=== PATIENT | male | born 1975 | race Caucasian/White ===

== ENCOUNTER 2020-11-06 12:09 | Emergency (ER) | payer BC ==
[~2020-11-06] VITALS: Ht 172.7 cm; Wt 75.0 kg
[2020-11-06 12:23] VITALS: BP 141/88
[2020-11-06] MEDS ORDERED: ALB0.5UD IH (14:28)
== END 2020-11-06 14:37 | disposition home or self-care (01) ==
LOC: ER 12:10
DX: Z20.822 Contact with and (suspected) exposure to COVID-19 (principal); R09.89 Other specified symptoms and signs involving the circulatory and respiratory systems; R06.2 Wheezing; R05 Cough
CPT/HCPCS: 36415; 71045; 99284; U0003; U0005

== ENCOUNTER 2021-10-23 00:29 | Inpatient (IN) | payer BC, OTHER ==
[~2021-10-23] VITALS: Ht 172.7 cm; Wt 77.3 kg
[2021-10-23] VITALS (11 sets, daily range): BP systolic 130–163; BP diastolic 69–109
[2021-10-23] MEDS ORDERED: heparin 10,000 units/1 ML INJ IV ONE ×2 (00:40→02:30)
[2021-10-23] MEDS ORDERED: aspirin 81mg tab.chew PO ONE (00:40)
[2021-10-23] MEDS ORDERED: HEPARIN SOD,PORK IN 0.45% NACL 250 ML IV SCH ×2 (00:40→02:30)
[2021-10-23] MEDS ORDERED: heparin 10,000 units/1 ML INJ IV PRN ×2 (00:40→02:30)
[2021-10-23 00:51] LABS: BASOPHILS # (AUTO) 0.2 X10'3 (0-0.2); BASOPHILS % (AUTO) 1.2 % (0-1); EOSINOPHILS # (AUTO) 0.2 X10'3 (0-0.9); EOSINOPHILS % (AUTO) 1.8 % (0-6); HEMATOCRIT 43.8 % (42.0-52.0); HEMOGLOBIN 15.4 g/dl (14.0-17.9); LYMPHOCYTES # (AUTO) 3.7 X10'3 (1.1-4.8); LYMPHOCYTES % (AUTO) 29.8 % (21-51); MEAN CORPUSCULAR HEMOGLOBIN 32.7 PG (27.0-31.0); MEAN CORPUSCULAR HGB CONC 35.1 g/dL (33.0-36.5); MEAN CORPUSCULAR VOLUME 93.1 FL (78-98); MEAN PLATELET VOLUME 8.8 FL (7.4-10.4); MONOCYTES # (AUTO) 1.2 X10'3 (0-0.9); MONOCYTES % (AUTO) 9.2 % (2-12); NEUTROPHILS # (AUTO) 7.3 X10'3 (1.8-7.7); PLATELET COUNT 278 X10'3 (140-440); RED CELL DISTRIBUTION WIDTH 12.5 % (11.5-14.5); WHITE BLOOD COUNT 12.5 X10'3 (4.5-11.0)
[2021-10-23 01:05] LABS: ALANINE AMINOTRANSFERASE 105 U/L (12-78); ALBUMIN 4.2 G/DL (3.4-5.0); ALBUMIN/GLOBULIN RATIO 1.1 (1.1-1.5); ALKALINE PHOSPHATASE 82 IU/L (46-116); ANION GAP 12 (8-16); ASPARTATE AMINO TRANSFERASE 54 U/L (10-37); BILIRUBIN,TOTAL 0.5 MG/DL (0.1-1.0); BLOOD UREA NITROGEN 15 MG/DL (7-18); BUN/CREATININE RATIO 16.3 (5.4-32.0); CALCIUM 9.6 MG/DL (8.5-10.1); CHLORIDE 95 MMOL/L (99-107); CREATININE 0.92 MG/DL (0.60-1.10); GLUCOSE 216 MG/DL (70-104); POTASSIUM 3.7 MMOL/L (3.5-5.1); SODIUM 135 MMOL/L (135-145); TOTAL CARBON DIOXIDE 27.9 MMOL/L (24-32); TOTAL PROTEIN 8.1 G/DL (6.4-8.2); eGFR 88 ML/MIN
[2021-10-23 01:10] LABS: APTT 29 SECONDS (22-32)
--- NOTE | 2021-10-23 01:10 | NUR ---
CONFIRMED WITH DR GUNTER THAT DR DEWITT WAS CONTACTED AND PRECISION LENS GENERATOR IS BEING HELD OFF FOR THE PRESENT. HEPARIN DRIP ORDER HAS BEEN INITIATED. PT IS DENYING ANY CHEST PAIN AT PRESENT.
[2021-10-23 01:11] LABS: MAGNESIUM 1.5 MG/DL (1.5-2.4)
[2021-10-23] MEDS ORDERED: famotidine/PF 10 mg/ml inj IV ONE (01:35)
[2021-10-23] MEDS ORDERED: POTASSIUM BICARB 20meq eff tab 20 MEQ TABLET.EFF PO PRN ×2 (02:25)
[2021-10-23] MEDS ORDERED: PERFLUTREN PROTEIN-A MICROSPHR (Optison) 0.22 MG/ML 3ML VIAL IV ONE (02:25)
[2021-10-23] MEDS ORDERED: magnesium 4gm in 100ml NS 100 ML IV PRN (02:25)
[2021-10-23] MEDS ORDERED: aminophylline 500mg/20ml vial IV PRN (02:25)
[2021-10-23] MEDS ORDERED: nitroGLYCERIN 0.4mg SUBLingual tab SL PRN (02:25)
[2021-10-23] MEDS ORDERED: mag hydrox/Alum hydrox/simeth 30ml oral suspension PO PRN (02:25)
[2021-10-23] MEDS ORDERED: ondansetron/PF 4mg/2ml inj IV PRN (02:25)
[2021-10-23] MEDS ORDERED: regadenoson 0.4mg/5ml syringe IV PRN (02:25)
[2021-10-23] MEDS ORDERED: acetaminophen 325mg tablet PO PRN (02:25)
[2021-10-23] MEDS ORDERED: metoprolol tartrate 1mg/ml inj IV PRN (02:25)
[2021-10-23] MEDS ORDERED: magnesium 2GM in 50ml NS 50 ML IV PRN (02:25)
[2021-10-23] MEDS ORDERED: potassium CL 10mEq/100ml bag 100 ML IV PRN (02:25)
[2021-10-23] MEDS ORDERED: atorvastatin 20mg tablet PO ONE (02:35)
[2021-10-23] MEDS ORDERED: metoprolol tartrate 12.5mg (1/2 tablet) PO ONE (02:40)
[2021-10-23] MEDS ORDERED: haloperidol lactate 5mg/ml inj IM PRN (02:50)
[2021-10-23] MEDS ORDERED: LORazepam 1 MG tablet PO PRN (02:50)
[2021-10-23] MEDS ORDERED: LORazepam 2 mg/ml vial IV PRN (02:50)
[2021-10-23] MEDS ORDERED: haloperidol 5mg tablet PO PRN (02:50)
[2021-10-23 02:53] LABS: CHOL/HDL RATIO 6.9 (0.00-4.99); CHOLESTEROL 250 MG/DL (0-200); HDL CHOLESTEROL 36 MG/DL (35-60); LDL CHOLESTEROL 168 MG/DL (50-100); TRIGLYCERIDES 211 MG/DL (20-135)
--- NOTE | 2021-10-23 03:11 | NUR ---
NO CALL BACK FROM PAGE SENT OUT TO [facility] WITH PT'S NEW TROPONIN RESULT. ON DR KATZ'S REQUEST, I PAGED OUT TO DR DEWITT AND REPORTED NEW TROPONIN RESULT.
--- NOTE | 2021-10-23 03:15 | NUR ---
PT DENIES ANY CHEST PAIN AT THIS TIME .
[2021-10-23] MEDS ORDERED: NO HOME MEDS (03:16)
--- NOTE | 2021-10-23 03:23 | NUR ---
DR DEWITT HAS CALLED AND IS CURRENTLY TALKING TO DR KATZ OVER THE PHONE.
--- NOTE | 2021-10-23 04:14 | NUR ---
PAGED DR DRAPER FOR HYPERGLYCEMIC ORDERS.
--- NOTE | 2021-10-23 04:27 | NUR ---
TOLD DR KATZ AND PAGED DR DRAPER FOR NEW TROPONIN RESULT.
[2021-10-23] MEDS ORDERED: insulin Lispro (HumaLOG) vial - multi-dose SQ SCH (04:35)
[2021-10-23] MEDS ORDERED: DEXTROSE 15 GM of carb/4 tabs (each vial/BOTTLE has 4 tablets) PO PRN ×4 (04:35→17:10)
[2021-10-23] MEDS ORDERED: MESSAGE TO PHARMACY PO ONE ×2 (04:35→17:10)
[2021-10-23] MEDS ORDERED: glucagon, human recombinant 1mg kit SUBCUT PRN ×2 (04:35→17:10)
[2021-10-23] MEDS ORDERED: dextrose 50%-water 50ml dispensing syringe IV PRN ×4 (04:35→17:10)
[2021-10-23] MEDS ORDERED: NICOTINE POLACRILEX 2 MG LOZENGE BC PRN (05:15)
[2021-10-23] MEDS: K and/or MAG REPLACEMENT MC SCH ×2 (08:00→20:00)
[2021-10-23] MEDS: docusate sod 100mg capsule PO SCH ×2 (10:53→20:18)
[2021-10-23] MEDS: multivitamins, therapeutics tablet PO SCH (10:53)
[2021-10-23] MEDS ORDERED: LIDOcaine 1%/PF 5ML 10 MG/ML VIAL ONE (11:29)
[2021-10-23] MEDS ORDERED: fentaNYL/PF 50MCG/1 ML 2ML syringe ONE (11:29)
[2021-10-23] MEDS ORDERED: verapamil 2.5 mg/ml inj IV ONE (11:29)
[2021-10-23] MEDS ORDERED: nitroGLYCERIN-Tridil 50MG/D5W 250 ML IV ONE (11:29)
[2021-10-23] MEDS ORDERED: heparin 1,000unit/ml 10ml vial 10 ML ONE ×2 (11:30→13:02)
[2021-10-23] MEDS ORDERED: midazolam 1 mg/ML 2ml injection ONE (11:30)
[2021-10-23] MEDS ORDERED: iohexol 350MG/ML 100ml bottle IV ONE ×2 (11:30→12:26)
[2021-10-23] MEDS ORDERED: clopidogrel 300mg tablet ONE (13:00)
[2021-10-23] MEDS ORDERED: normal saline 1000ml 1,000 ML IV ONE (15:00)
--- NOTE | 2021-10-23 18:30 | NUR ---
Patient in room U 3014. I have received report from selina and had the opportunity to ask questions and assume patient care. Addendum: 10/24/21 at 0313 by Kimani Song LVN not selina resendiz
--- NOTE | 2021-10-23 18:30 | NUR ---
Problems reprioritized. Patient report given, questions answered & plan of care reviewed with Simon DE LEON.
[2021-10-23] MEDS: insulin Lispro (HumaLOG) vial - multi-dose SQ SCH (20:14)
[2021-10-23] MEDS: metoprolol tartrate 25mg tablet PO SCH (20:18)
[2021-10-23] MEDS ORDERED: insulin glargine (Lantus) pen - multi-dose SQ SCH ×2 (21:00)
[2021-10-23] MEDS ORDERED: temazepam 15mg capsule PO PRN (22:20)
[2021-10-24 00:36] VITALS: BP 151/90
[2021-10-24 02:00] VITALS: BP 145/83
[2021-10-24 06:00] VITALS: BP 179/109
--- NOTE | 2021-10-24 06:02 | NUR ---
Problems reprioritized. Patient report given, questions answered & plan of care reviewed with martín.
--- NOTE | 2021-10-24 06:30 | NUR ---
Patient in room PCU 3014. I have received report from Simon DE LEON and had the opportunity to ask questions and assume patient care.
[2021-10-24 07:06] LABS: BASOPHILS # (AUTO) 0.1 X10'3 (0-0.2); BASOPHILS % (AUTO) 0.6 % (0-1); EOSINOPHILS # (AUTO) 0.3 X10'3 (0-0.9); EOSINOPHILS % (AUTO) 2.1 % (0-6); HEMOGLOBIN 15.3 g/dl (14.0-17.9); LYMPHOCYTES # (AUTO) 2.4 X10'3 (1.1-4.8); LYMPHOCYTES % (AUTO) 18.9 % (21-51); MEAN CORPUSCULAR HEMOGLOBIN 32.1 PG (27.0-31.0); MEAN CORPUSCULAR VOLUME 94.3 FL (78-98); MEAN PLATELET VOLUME 9.1 FL (7.4-10.4); MONOCYTES # (AUTO) 1.3 X10'3 (0-0.9); NEUTROPHILS # (AUTO) 8.9 X10'3 (1.8-7.7); NEUTROPHILS % (AUTO) 68.4 % (42-75); PLATELET COUNT 264 X10'3 (140-440); RED BLOOD COUNT 4.77 X10'6 (4.70-6.10); RED CELL DISTRIBUTION WIDTH 12.7 % (11.5-14.5)
[2021-10-24 07:20] LABS: ALANINE AMINOTRANSFERASE 82 U/L (12-78); ALBUMIN/GLOBULIN RATIO 1.1 (1.1-1.5); ALKALINE PHOSPHATASE 76 IU/L (46-116); ANION GAP 14 (8-16); ASPARTATE AMINO TRANSFERASE 63 U/L (10-37); BILIRUBIN,TOTAL 0.6 MG/DL (0.1-1.0); BLOOD UREA NITROGEN 9 MG/DL (7-18); BUN/CREATININE RATIO 14.3 (5.4-32.0); CALCIUM 9.3 MG/DL (8.5-10.1); CHLORIDE 100 MMOL/L (99-107); CHOL/HDL RATIO 6.9 (0.00-4.99); CHOLESTEROL 248 MG/DL (0-200); CREATININE 0.63 MG/DL (0.60-1.10); GLUCOSE 166 MG/DL (70-104); HDL CHOLESTEROL 36 MG/DL (35-60); LDL CHOLESTEROL 156 MG/DL (50-100); LIPASE 104 U/L (73-393); PHOSPHORUS 3.6 MG/DL (2.3-4.5); POTASSIUM 4.3 MMOL/L (3.5-5.1); SODIUM 137 MMOL/L (135-145); TOTAL CARBON DIOXIDE 22.9 MMOL/L (24-32); TOTAL PROTEIN 7.8 G/DL (6.4-8.2); TRIGLYCERIDES 323 MG/DL (20-135); eGFR > 90 ML/MIN
[2021-10-24] MEDS ORDERED: atorvastatin 20mg tablet PO SCH (08:00)
[2021-10-24] MEDS ORDERED: aspirin 81mg, enteric-coated 1 TAB TABLET.DR PO SCH (08:00)
[2021-10-24] MEDS: K and/or MAG REPLACEMENT MC SCH (08:00)
[2021-10-24] MEDS ORDERED: clopidogrel 75mg tablet PO SCH (08:05)
[2021-10-24 08:27] VITALS: BP_SYST 179
[2021-10-24] MEDS: multivitamins, therapeutics tablet PO SCH (08:27)
[2021-10-24] MEDS: docusate sod 100mg capsule PO SCH (08:27)
[2021-10-24] MEDS: metoprolol tartrate 25mg tablet PO SCH (08:27)
[2021-10-24] MEDS ORDERED: CLOP75TA34 PO ×3 (09:55→12:24)
[2021-10-24] MEDS ORDERED: ATOR20TA66 PO (09:55)
[2021-10-24] MEDS ORDERED: LOP25T PO (09:55)
[2021-10-24] MEDS ORDERED: LISI5TAB22 PO (09:55)
[2021-10-24] MEDS ORDERED: ASPI-1071 PO (09:55)
[2021-10-24] MEDS ORDERED: METF-1203 PO (10:21)
[2021-10-24] MEDS: insulin Lispro (HumaLOG) vial - multi-dose SQ SCH (10:40)
[2021-10-24] MEDS ORDERED: lisinopril 5mg tablet PO SCH (12:00)
--- NOTE | 2021-10-24 12:24 | NUR ---
Pt. discharged with mom and plavix in hand, discharge teaching completed, IVs out, and personal belongings secured. Left via private vehicle.
[2021-10-27] MEDS ORDERED: folic acid 1mg tablet PO SCH (08:00)
[2021-10-27] MEDS ORDERED: thiamine 100mg tablet PO SCH (08:00)
== END 2021-10-24 12:05 | disposition home or self-care (01) | DRG 247 ==
LOC: ER 00:29 → ED HOLD 02:30 → PCU 3S 10:20
PROVIDERS: ADMIT Family Medicine; ATTEND Family Medicine
PROC: 4A023N7 Measurement of Cardiac Sampling and Pressure, Left Heart, Percutaneous Approach (ICD-10-PCS; principal; 2021-10-23)
PROC: 027034Z Dilation of Coronary Artery, One Artery with Drug-eluting Intraluminal Device, Percutaneous Approach (ICD-10-PCS; 2021-10-23)
PROC: B2111ZZ Fluoroscopy of Multiple Coronary Arteries using Low Osmolar Contrast (ICD-10-PCS; 2021-10-23)
PROC: B2151ZZ Fluoroscopy of Left Heart using Low Osmolar Contrast (ICD-10-PCS; 2021-10-23)
DX: I21.4 Non-ST elevation (NSTEMI) myocardial infarction (principal); E78.5 Hyperlipidemia, unspecified; F10.10 Alcohol abuse, uncomplicated; M25.512 Pain in left shoulder; R74.01 Elevation of levels of liver transaminase levels; F17.210 Nicotine dependence, cigarettes, uncomplicated; Z79.02 Long term (current) use of antithrombotics/antiplatelets; Z80.0 Family history of malignant neoplasm of digestive organs; Z83.3 Family history of diabetes mellitus; Z79.84 Long term (current) use of oral hypoglycemic drugs; Z71.6 Tobacco abuse counseling; Z71.41 Alcohol abuse counseling and surveillance of alcoholic
CPT/HCPCS: 93306; 93458; 99285; C9600; 36415; 71045; 76937; 80053; 80061; 82948; 83036; 83690; 83735; 83880; 84100; 84484; 85025; 85347; 85610; 85730; 87081; 93005; 99152; 99153; A4620; A5120; A6258; A6402; C1725; C1751; C1769; C1874; C1894; G0378; J1644; J1815; J2250; J3010; J3490; J7030; Q9967

== ENCOUNTER 2022-04-27 07:59 | Emergency (ER) | payer BC, SELFPAY ==
[~2022-04-27] VITALS: Ht 172.7 cm; Wt 61.4 kg
[~2022-04-27 07:59] MED LIST: ASPI-1071 PO; ATOR20TA66 PO; CLOP75TA34 PO; LISI5TAB22 PO; LOP25T PO; METF-1203 PO
[2022-04-27 08:53] LABS: BASOPHILS # (AUTO) 0.1 X10'3 (0-0.2); BASOPHILS % (AUTO) 0.6 % (0-1); EOSINOPHILS # (AUTO) 0.1 X10'3 (0-0.9); EOSINOPHILS % (AUTO) 0.7 % (0-6); HEMATOCRIT 32.1 % (42.0-52.0); HEMOGLOBIN 10.2 g/dl (14.0-17.9); LYMPHOCYTES # (AUTO) 1.2 X10'3 (1.1-4.8); LYMPHOCYTES % (AUTO) 9.8 % (21-51); MEAN CORPUSCULAR HEMOGLOBIN 26.3 PG (27.0-31.0); MEAN CORPUSCULAR HGB CONC 31.8 g/dL (33.0-36.5); MEAN CORPUSCULAR VOLUME 82.5 FL (78-98); MEAN PLATELET VOLUME 7.4 FL (7.4-10.4); MONOCYTES # (AUTO) 0.7 X10'3 (0-0.9); MONOCYTES % (AUTO) 5.6 % (2-12); NEUTROPHILS # (AUTO) 10.2 X10'3 (1.8-7.7); NEUTROPHILS % (AUTO) 83.3 % (42-75); PLATELET COUNT 512 X10'3 (140-440); RED CELL DISTRIBUTION WIDTH 16.3 % (11.5-14.5); WHITE BLOOD COUNT 12.3 X10'3 (4.5-11.0)
[2022-04-27 09:08] LABS: ALANINE AMINOTRANSFERASE 15 U/L (12-78); ALBUMIN 3.6 G/DL (3.4-5.0); ALBUMIN/GLOBULIN RATIO 0.9 (1.1-1.5); ALKALINE PHOSPHATASE 105 IU/L (46-116); ANION GAP 7 (8-16); ASPARTATE AMINO TRANSFERASE 9 U/L (10-37); BILIRUBIN,TOTAL 0.5 MG/DL (0.1-1.0); BLOOD UREA NITROGEN 7 MG/DL (7-18); BUN/CREATININE RATIO 10.9 (5.4-32.0); CALCIUM 9.6 MG/DL (8.5-10.1); CHLORIDE 102 MMOL/L (99-107); CREATININE 0.64 MG/DL (0.60-1.10); GLUCOSE 151 MG/DL (70-104); LIPASE 61 U/L (73-393); SODIUM 137 MMOL/L (135-145); TOTAL CARBON DIOXIDE 27.7 MMOL/L (24-32); TOTAL PROTEIN 7.6 G/DL (6.4-8.2); eGFR > 90 ML/MIN
[2022-04-27] MEDS ORDERED: normal saline 1000ML IV soln IVB ONE (10:05)
[2022-04-27] MEDS ORDERED: METR-159 PO (11:01)
[2022-04-27] MEDS ORDERED: HYDR-3965 PO (11:01)
[2022-04-27] MEDS ORDERED: CIPR-202 PO (11:01)
[2022-04-27] MEDS ORDERED: ONDA4TAB12 PO (11:01)
[2022-04-27 11:09] VITALS: BP 113/78
== END 2022-04-27 11:10 | disposition home or self-care (01) ==
LOC: ER 08:00
DX: K52.9 Noninfective gastroenteritis and colitis, unspecified (principal); Z79.84 Long term (current) use of oral hypoglycemic drugs; Z79.82 Long term (current) use of aspirin; Z79.899 Other long term (current) drug therapy
CPT/HCPCS: 36415; 74176; 80053; 83690; 85025; 99284

== ENCOUNTER 2022-05-05 08:00 | Inpatient (IN) | payer BC ==
[~2022-05-05] VITALS: Ht 172.7 cm; Wt 64.8 kg
[~2022-05-05 08:00] MED LIST changes: +CIPR-202 PO; +HYDR-3965 PO; +METR-159 PO; +ONDA4TAB12 PO
[2022-05-05 10:43] LABS: BASOPHILS # (AUTO) 0.1 X10'3 (0-0.2); BASOPHILS % (AUTO) 0.6 % (0-1); EOSINOPHILS # (AUTO) 0.1 X10'3 (0-0.9); EOSINOPHILS % (AUTO) 0.5 % (0-6); HEMATOCRIT 32.9 % (42.0-52.0); HEMOGLOBIN 10.6 g/dl (14.0-17.9); LYMPHOCYTES # (AUTO) 1.6 X10'3 (1.1-4.8); LYMPHOCYTES % (AUTO) 13.2 % (21-51); MEAN CORPUSCULAR HEMOGLOBIN 25.7 PG (27.0-31.0); MEAN CORPUSCULAR HGB CONC 32.3 g/dL (33.0-36.5); MEAN CORPUSCULAR VOLUME 79.7 FL (78-98); MEAN PLATELET VOLUME 7.2 FL (7.4-10.4); NEUTROPHILS # (AUTO) 9.3 X10'3 (1.8-7.7); NEUTROPHILS % (AUTO) 77.7 % (42-75); PLATELET COUNT 607 X10'3 (140-440); RED BLOOD COUNT 4.13 X10'6 (4.70-6.10); RED CELL DISTRIBUTION WIDTH 16.6 % (11.5-14.5); WHITE BLOOD COUNT 11.9 X10'3 (4.5-11.0)
[2022-05-05 11:00] LABS: ALANINE AMINOTRANSFERASE 18 U/L (12-78); ALBUMIN/GLOBULIN RATIO 1.1 (1.1-1.5); ALKALINE PHOSPHATASE 73 IU/L (46-116); ANION GAP 10 (8-16); ASPARTATE AMINO TRANSFERASE 14 U/L (10-37); BILIRUBIN,TOTAL 0.5 MG/DL (0.1-1.0); BLOOD UREA NITROGEN 12 MG/DL (7-18); CALCIUM 9.8 MG/DL (8.5-10.1); CHLORIDE 101 MMOL/L (99-107); CREATININE 0.63 MG/DL (0.60-1.10); GLUCOSE 128 MG/DL (70-104); LIPASE 70 U/L (73-393); POTASSIUM 3.7 MMOL/L (3.5-5.1); SODIUM 138 MMOL/L (135-145); TOTAL CARBON DIOXIDE 27.5 MMOL/L (24-32); TOTAL PROTEIN 7.6 G/DL (6.4-8.2); eGFR > 90 ML/MIN
[2022-05-05 11:08] LABS: PLATELET ESTIMATE INCREASED
[2022-05-05 11:09] LABS: ANISOCYTOSIS 1+; MICROCYTOSIS 1+
[2022-05-05 12:01] LABS: APTT 26 SECONDS (22-32)
[2022-05-05] MEDS ORDERED: iohexol 300mg/ml 100ml inj. ONE (12:12)
[2022-05-05] MEDS ORDERED: pantoprazole 40mg IV 80 MG in normal saline 100ml IV soln 100 ML IV ONE (16:15)
[2022-05-05] MEDS ORDERED: METF-436 PO (17:25)
[2022-05-05] MEDS ORDERED: CLOP75TA33 PO (17:25)
[2022-05-05] MEDS ORDERED: ATOR20TA66 PO (17:25)
[2022-05-05] MEDS ORDERED: LISI5TAB22 PO (17:25)
[2022-05-05] MEDS ORDERED: METO25TA6 PO (17:25)
[2022-05-05] MEDS ORDERED: CIPR500T5 PO (17:25)
[2022-05-05] MEDS ORDERED: acetaminophen 325mg tablet PO PRN (17:30)
[2022-05-05] MEDS ORDERED: magnesium 4gm in 100ml NS 100 ML IV PRN (17:30)
[2022-05-05] MEDS ORDERED: PEG 3350/Na sulf,bicarb,Cl/KCl oral sol 4 liter bottle PO ONE (17:30)
[2022-05-05] MEDS ORDERED: magnesium Cl slow-release 64mg tablet PO PRN (17:30)
[2022-05-05] MEDS ORDERED: potassium Cl 40MEQ/1/2NS 520ml 520 ML IV PRN (17:30)
[2022-05-05] MEDS ORDERED: mag hydrox/Alum hydrox/simeth 30ml oral suspension PO PRN (17:30)
[2022-05-05] MEDS ORDERED: potassium Cl 20 mEq SR tablet PO PRN ×2 (17:30)
[2022-05-05] MEDS ORDERED: magnesium hydroxide 30ml (MOM) UD suspension PO PRN (17:30)
[2022-05-05] MEDS ORDERED: ondansetron/PF 4mg/2ml inj IV PRN (17:30)
[2022-05-05] MEDS: normal saline 1000ml 1,000 ML IV SCH (18:41)
[2022-05-05] MEDS: K and/or MAG REPLACEMENT MC SCH (19:01)
[2022-05-05] MEDS: docusate sod 100mg capsule PO SCH (19:02)
[2022-05-05] MEDS: pantoprazole 40MG/NS 100ML BAG 100 ML IV SCH (19:36)
[2022-05-05] MEDS: ciprofloxacin 250mg tablet PO SCH (19:36)
[2022-05-05] MEDS: metoprolol tartrate 25mg tablet PO SCH (19:39)
[2022-05-05 19:43] LABS: COLOR,URINE YELLOW (Yellow); GLUCOSE, URINE NEGATIVE (Neg); KETONES,URINE 15 mg/dl (Neg); LEUKOCYTE ESTERASE ,URINE NEGATIVE (Neg); NITRITES, URINE NEGATIVE (Neg); OCCULT BLOOD,URINE SMALL (Neg); PH,URINE 6.5 (4.8-8.0); PROTEIN,URINE NEGATIVE (Neg); UROBILINOGEN,URINE 0.2 E.U/dL (0.2-1.0)
[2022-05-05 19:50] LABS: CLARITY,URINE SLIGHTLY CLOUDY (Clear); UA COLLECTION TYPE URINAL
[2022-05-05 19:57] LABS: MUCUS STRANDS FEW /LPF (Neg); SQUAMOUS EPITHELIAL CELL,UR FEW /LPF (FEW)
[2022-05-05 19:58] LABS: BACTERIA,URINE NONE SEEN /HPF (Neg)
[2022-05-05 19:59] LABS: CAL OXALATE CRYSTALS 1+ /HPF (NEGATIVE); WBC,URINE 0-4 /HPF (0-4)
[2022-05-05 20:00] LABS: TRANSITIONAL EPI CELLS,URINE FEW /HPF
[2022-05-05 21:04] VITALS: BP 130/79
[2022-05-05 23:14] VITALS: BP 147/78
[2022-05-06] VITALS (10 sets, daily range): BP systolic 99–141; BP diastolic 58–95
[2022-05-06] MEDS: normal saline 1000ml 1,000 ML IV SCH ×3 (03:30→13:30)
[2022-05-06 05:46] LABS: BASOPHILS # (AUTO) 0.1 X10'3 (0-0.2); BASOPHILS % (AUTO) 0.8 % (0-1); EOSINOPHILS # (AUTO) 0.1 X10'3 (0-0.9)
[2022-05-06 05:48] LABS: EOSINOPHILS % (AUTO) 0.5 % (0-6); HEMOGLOBIN 10.7 g/dl (14.0-17.9); LYMPHOCYTES # (AUTO) 1.7 X10'3 (1.1-4.8); LYMPHOCYTES % (AUTO) 12.1 % (21-51); MEAN CORPUSCULAR HEMOGLOBIN 25.1 PG (27.0-31.0); MEAN CORPUSCULAR HGB CONC 31.6 g/dL (33.0-36.5); MEAN CORPUSCULAR VOLUME 79.5 FL (78-98); MEAN PLATELET VOLUME 7.3 FL (7.4-10.4); MONOCYTES # (AUTO) 1.1 X10'3 (0-0.9); MONOCYTES % (AUTO) 7.7 % (2-12); NEUTROPHILS # (AUTO) 11.3 X10'3 (1.8-7.7); NEUTROPHILS % (AUTO) 78.9 % (42-75); PLATELET COUNT 607 X10'3 (140-440); RED BLOOD COUNT 4.27 X10'6 (4.70-6.10); RED CELL DISTRIBUTION WIDTH 17.1 % (11.5-14.5); WHITE BLOOD COUNT 14.3 X10'3 (4.5-11.0)
[2022-05-06 05:51] LABS: ALBUMIN 4.1 G/DL (3.4-5.0); ANION GAP 12 (8-16); BLOOD UREA NITROGEN 13 MG/DL (7-18); BUN/CREATININE RATIO 17.3 (10.0-20.0); CALCIUM 9.9 MG/DL (8.5-10.1); CHLORIDE 97 MMOL/L (99-107); CREATININE 0.75 MG/DL (0.60-1.10); GLUCOSE 119 MG/DL (70-104); MAGNESIUM 1.7 MG/DL (1.5-2.4); POTASSIUM 4.4 MMOL/L (3.5-5.1); SODIUM 135 MMOL/L (135-145); TOTAL CARBON DIOXIDE 26.2 MMOL/L (24-32); eGFR > 90 ML/MIN
--- NOTE | 2022-05-06 06:20 | NUR ---
Patient in room PCU 3023. I have received report from Walter FONTAINE and had the opportunity to ask questions and assume patient care.
--- NOTE | 2022-05-06 06:22 | NUR ---
Problems reprioritized. Patient report given, questions answered & plan of care reviewed with Gwen DE LEON.
[2022-05-06 06:36] LABS: PLATELET ESTIMATE INCREASED
[2022-05-06 06:37] LABS: ANISOCYTOSIS 1+; MICROCYTOSIS 1+
[2022-05-06 06:38] LABS: BURR CELLS FEW; LARGE PLATELETS FEW
[2022-05-06] MEDS: docusate sod 100mg capsule PO SCH ×2 (08:00→23:00)
[2022-05-06] MEDS: K and/or MAG REPLACEMENT MC SCH ×2 (08:00→20:00)
[2022-05-06] MEDS: pantoprazole 40MG/NS 100ML BAG 100 ML IV SCH ×2 (08:27→22:52)
[2022-05-06] MEDS: metoprolol tartrate 25mg tablet PO SCH ×2 (08:42→23:20)
[2022-05-06] MEDS: lisinopril 5mg tablet PO SCH (08:44)
[2022-05-06] MEDS: atorvastatin 20mg tablet PO SCH (08:44)
[2022-05-06] MEDS: ciprofloxacin 250mg tablet PO SCH ×2 (08:44→23:01)
--- NOTE | 2022-05-06 09:00 | NUR ---
Attempted to call GI lab no answer at this time.
--- NOTE | 2022-05-06 12:00 | NUR ---
Attempted to call GI lab. No answer
--- NOTE | 2022-05-06 13:57 | NUR ---
Malnutrition consult: Pt reports wt loss with decreased appetite per malnutrition risk screen with RN. Most recent scaled wt hx in EMR is 61.36 kg taken 04/27 with a chair scale. Current bed scaled wt is 64.8 kg, no apparent wt loss. Pt with an active clear liquid diet however appears to actually be NPO and drinking GoLytely pending colonoscopy and endoscopy per EMR. Pt with no documented decrease in muscle strength or edema. Pt currently lacks a minimum of two criteria for malnutrition. Will continue to follow and further monitor qualifying criteria for malnutrition. Addendum: 05/06/22 at [address] Amended: Links added.
--- NOTE | 2022-05-06 14:03 | NUR ---
Attempted to call GI lab. No answer at this time.
--- NOTE | 2022-05-06 14:48 | NUR ---
Spoke with Nayeli from GI Lab. She is going to find out when the patient will be going to the procedure and let me know.
[2022-05-06] MEDS ORDERED: LIDOcaine Viscous 15ml cup ONE (16:47)
[2022-05-06] MEDS ORDERED: MIDAZolam 1 MG/ML 5ML VIAL ONE (16:47)
[2022-05-06] MEDS ORDERED: fentaNYL/PF 50MCG/1 ML 2ML syringe ONE (16:47)
--- NOTE | 2022-05-06 17:02 | NUR ---
Patient going to GI Lab for EGD and Colonoscopy.
--- NOTE | 2022-05-06 18:17 | NUR ---
Problems reprioritized. Patient report given, questions answered & plan of care reviewed with Bobby FONTAINE.
[2022-05-06] MEDS ORDERED: morphine 2 MG/ML inj. syringe IV PRN (22:15)
[2022-05-06] MEDS ORDERED: morphine 4 MG/ML inj SYRINge IV PRN (22:15)
[2022-05-06] MEDS: temazepam 15mg capsule PO PRN ×2 (22:52→23:49)
[2022-05-06] MEDS: HYDROmorphone inj. 0.5 MG/0.5 ML DISP.SYRIN IV PRN (22:53)
[2022-05-07] MEDS: normal saline 1000ml 1,000 ML IV SCH (01:30)
[2022-05-07 06:06] LABS: BASOPHILS # (AUTO) 0.1 X10'3 (0-0.2); BASOPHILS % (AUTO) 0.8 % (0-1); EOSINOPHILS # (AUTO) 0.3 X10'3 (0-0.9); EOSINOPHILS % (AUTO) 2.9 % (0-6); HEMATOCRIT 32.7 % (42.0-52.0); HEMOGLOBIN 10.3 g/dl (14.0-17.9); LYMPHOCYTES # (AUTO) 2.5 X10'3 (1.1-4.8); LYMPHOCYTES % (AUTO) 23.5 % (21-51); MEAN CORPUSCULAR HEMOGLOBIN 25.7 PG (27.0-31.0); MEAN CORPUSCULAR HGB CONC 31.5 g/dL (33.0-36.5); MEAN CORPUSCULAR VOLUME 81.6 FL (78-98); MEAN PLATELET VOLUME 7.5 FL (7.4-10.4); MONOCYTES # (AUTO) 1.1 X10'3 (0-0.9); NEUTROPHILS # (AUTO) 6.7 X10'3 (1.8-7.7); NEUTROPHILS % (AUTO) 62.8 % (42-75); PLATELET COUNT 481 X10'3 (140-440); RED CELL DISTRIBUTION WIDTH 16.9 % (11.5-14.5); WHITE BLOOD COUNT 10.6 X10'3 (4.5-11.0)
[2022-05-07 06:21] LABS: ALBUMIN 3.5 G/DL (3.4-5.0); ANION GAP 13 (8-16); BLOOD UREA NITROGEN 17 MG/DL (7-18); BUN/CREATININE RATIO 25.8 (10.0-20.0); CALCIUM 9.2 MG/DL (8.5-10.1); CHLORIDE 103 MMOL/L (99-107); CREATININE 0.66 MG/DL (0.60-1.10); GLUCOSE 66 MG/DL (70-104); MAGNESIUM 1.8 MG/DL (1.5-2.4); POTASSIUM 3.8 MMOL/L (3.5-5.1); SODIUM 137 MMOL/L (135-145); TOTAL CARBON DIOXIDE 21.5 MMOL/L (24-32); eGFR > 90 ML/MIN
[2022-05-07 07:00] VITALS: BP 102/63
[2022-05-07] MEDS: ciprofloxacin 250mg tablet PO SCH ×2 (08:00→20:40)
[2022-05-07] MEDS: K and/or MAG REPLACEMENT MC SCH ×2 (08:00→20:28)
[2022-05-07] MEDS: docusate sod 100mg capsule PO SCH ×2 (08:00→20:00)
[2022-05-07] MEDS: lisinopril 5mg tablet PO SCH (08:01)
[2022-05-07] MEDS: atorvastatin 20mg tablet PO SCH (08:02)
[2022-05-07] MEDS: metoprolol tartrate 25mg tablet PO SCH ×2 (08:02→20:49)
[2022-05-07] MEDS: dextrose 5%-normal saline 1,000 ML IV SCH ×2 (08:45→23:03)
[2022-05-07] MEDS: pantoprazole 40MG/NS 100ML BAG 100 ML IV SCH ×2 (09:09→19:49)
[2022-05-07 11:00] VITALS: BP 100/64
--- NOTE | 2022-05-07 14:56 | NUR ---
[id number] Kellie. Pt feeling anxious about surgery. Can I have an order for an anxiety med? Thank you. Lorena FONTAINE @[phone]
[2022-05-07 15:00] VITALS: BP 117/70
--- NOTE | 2022-05-07 16:10 | NUR ---
sent to jillian [id number] Hopkins: pt very nervous about cancer bowel resection surgery tomorrow. Can I please have an order for ativan or xanax to help calm his anxiety down? Thank you. Cele FONTAINE [phone]
--- NOTE | 2022-05-07 16:51 | NUR ---
sent to jillian [id number] Hopkins: I need an order for ativan or xanax to help this pt with anxiety please. thank you.
[2022-05-07] MEDS ORDERED: LORazepam 0.5 MG tablet PO PRN (16:55)
[2022-05-07 18:00] VITALS: BP 113/66
--- NOTE | 2022-05-07 18:30 | NUR ---
Patient in room PCU 3023. I have received report from Cele FONTAINE and had the opportunity to ask questions and assume patient care.
[2022-05-07 22:00] VITALS: BP 130/80
[2022-05-07] MEDS: temazepam 15mg capsule PO PRN (22:11)
--- NOTE | 2022-05-07 23:26 | NUR ---
Problems reprioritized. Patient report given, questions answered & plan of care reviewed with Jailyn FONTAINE.
[2022-05-08] VITALS (19 sets, daily range): BP systolic 105–167; BP diastolic 67–104
[2022-05-08] MEDS: temazepam 15mg capsule PO PRN (00:23)
--- NOTE | 2022-05-08 06:14 | NUR ---
Patient reviewed and reported. Report given to Alyssa FONTAINE
--- NOTE | 2022-05-08 06:44 | NUR ---
Patient in room ORTHO 4015. I have received report from ANDREINA FONTAINE and had the opportunity to ask questions and assume patient care.
--- NOTE | 2022-05-08 07:15 | NUR ---
called OR charge to discuss pts meds before surgery, stated all heart meds are fine if vitals are good due to the pt not going till later today. told i would hold cipro due to pt not eating and pt is already nauseas at times.
[2022-05-08 07:38] LABS: BASOPHILS # (AUTO) 0.1 X10'3 (0-0.2); BASOPHILS % (AUTO) 1.1 % (0-1); EOSINOPHILS # (AUTO) 0.2 X10'3 (0-0.9); EOSINOPHILS % (AUTO) 2.4 % (0-6); HEMOGLOBIN 9.3 g/dl (14.0-17.9); LYMPHOCYTES # (AUTO) 1.4 X10'3 (1.1-4.8); LYMPHOCYTES % (AUTO) 17.2 % (21-51); MEAN CORPUSCULAR HEMOGLOBIN 25.6 PG (27.0-31.0); MEAN CORPUSCULAR HGB CONC 32.2 g/dL (33.0-36.5); MEAN CORPUSCULAR VOLUME 79.5 FL (78-98); MEAN PLATELET VOLUME 7.3 FL (7.4-10.4); MONOCYTES # (AUTO) 0.8 X10'3 (0-0.9); MONOCYTES % (AUTO) 9.5 % (2-12); NEUTROPHILS # (AUTO) 5.7 X10'3 (1.8-7.7); NEUTROPHILS % (AUTO) 69.8 % (42-75); PLATELET COUNT 441 X10'3 (140-440); RED BLOOD COUNT 3.65 X10'6 (4.70-6.10); RED CELL DISTRIBUTION WIDTH 16.3 % (11.5-14.5); WHITE BLOOD COUNT 8.2 X10'3 (4.5-11.0)
[2022-05-08 07:49] LABS: PRE OP INR 1.1 INR; PRE OP PROTIME 11.4 SECONDS (9.0-12.0)
[2022-05-08 07:52] LABS: ALBUMIN 3.1 G/DL (3.4-5.0); ANION GAP 7 (8-16); BLOOD UREA NITROGEN 8 MG/DL (7-18); BUN/CREATININE RATIO 13.1 (10.0-20.0); CALCIUM 8.5 MG/DL (8.5-10.1); CHLORIDE 103 MMOL/L (99-107); CREATININE 0.61 MG/DL (0.60-1.10); GLUCOSE 106 MG/DL (70-104); MAGNESIUM 1.5 MG/DL (1.5-2.4); POTASSIUM 3.8 MMOL/L (3.5-5.1); SODIUM 137 MMOL/L (135-145); TOTAL CARBON DIOXIDE 26.6 MMOL/L (24-32); eGFR > 90 ML/MIN
[2022-05-08] MEDS: K and/or MAG REPLACEMENT MC SCH ×2 (08:00→20:00)
[2022-05-08] MEDS: ciprofloxacin 250mg tablet PO SCH ×2 (08:00→21:16)
[2022-05-08] MEDS: atorvastatin 20mg tablet PO SCH (08:26)
[2022-05-08] MEDS: metoprolol tartrate 25mg tablet PO SCH ×2 (08:26→21:17)
[2022-05-08] MEDS: lisinopril 5mg tablet PO SCH (08:27)
[2022-05-08] MEDS: docusate sod 100mg capsule PO SCH ×2 (08:36→21:16)
[2022-05-08] MEDS: pantoprazole 40MG/NS 100ML BAG 100 ML IV SCH ×2 (09:40→21:15)
[2022-05-08] MEDS: dextrose 5%-normal saline 1,000 ML IV SCH (13:21)
--- NOTE | 2022-05-08 13:37 | NUR ---
this was done at 10 am Addendum: 05/08/22 at 1337 by Alyssa Ibarra RN Amended: Links added.
--- NOTE | 2022-05-08 16:03 | NUR ---
Problems reprioritized. Patient report given, questions answered & plan of care reviewed with darcie fountain in recovery .
[2022-05-08] MEDS ORDERED: BUPIVAcaine/PF 2.5 mg/ml (0.25%) 30ml vial ONE (17:33)
[2022-05-08] MEDS ORDERED: BUPIVACAINE liposomal/PF 13.3 MG/ML vial IM ONE (17:33)
[2022-05-08] MEDS ORDERED: ondansetron/PF 4mg/2ml inj IV PRN (17:35)
[2022-05-08] MEDS ORDERED: proCHLORperazine 10 MG/2 ml inj IV PRN (17:35)
[2022-05-08] MEDS ORDERED: sevoflurane 250ml liquid IH ONE (17:35)
[2022-05-08] MEDS ORDERED: morphine 4 MG/ML inj SYRINge IV PRN (17:35)
[2022-05-08] MEDS ORDERED: morphine 2 MG/ML inj. syringe IV PRN (17:35)
[2022-05-08] MEDS ORDERED: ringers solution, lacted 1,000 ML IV SCH (17:35)
[2022-05-08] MEDS ORDERED: meperidine/PF 25mg/ml syringe IV PRN ×2 (17:35)
[2022-05-08] MEDS ORDERED: midazolam 1 mg/ML 2ml injection ONE (17:35)
[2022-05-08] MEDS ORDERED: fentaNYL /PF 50mcg/ml 5ml ampule ONE (17:36)
--- NOTE | 2022-05-08 18:32 | NUR ---
Problems reprioritized. Patient report given, questions answered & plan of care reviewed with catalina fountain.
[2022-05-08] MEDS ORDERED: ondansetron/PF 4mg/2ml inj ONE (19:07)
[2022-05-08] MEDS ORDERED: LIDOcaine 1%/PF 5ML 10 MG/ML VIAL ONE (19:07)
[2022-05-08] MEDS ORDERED: propofol inj 20 ML IV ONE (19:07)
[2022-05-08] MEDS ORDERED: acetaminophen 1,000mg/100ml IV 100 ML IV ONE (19:07)
[2022-05-08] MEDS ORDERED: dexamethasone sod phosphate 4mg/ml inj. ONE (19:07)
[2022-05-08] MEDS ORDERED: rocuronium 10mg/ml inj IV ONE (19:07)
[2022-05-08] MEDS ORDERED: sugammadex 200mg/2ml injection IV ONE (19:08)
[2022-05-08] MEDS ORDERED: esmolol inj. 10 ML IV ONE (19:08)
[2022-05-08] MEDS ORDERED: glycopyrrolate 0.2mg/ml inj ONE (19:08)
[2022-05-08] MEDS ORDERED: labetalol 20mg/4ml (5mg/ml) syringe IV ONE (19:08)
--- NOTE | 2022-05-08 19:08 | NUR ---
Patient in room ORTHO 4015. I have received report from ZHEN Shah and had the opportunity to ask questions and assume patient care.
--- NOTE | 2022-05-08 19:30 | NUR ---
Received from OR via , accompanied by Anesthesiologist MARTIN AND OR NURSE and report given by Anesthesiolgist. PT IS DROWSY YET FOLLOWS VERBAL COMMANDS. ORAL AIRWAY IN PLACE UNTIL PT IS MORE AWAKE. NG TUBE IN PLACE; LEFT NARE. SHON MUKHERJEE; PATENT. VSS Addendum: 05/08/22 at 2012 by Valarie Mai RN Amended: Links added.
[2022-05-08] MEDS: meperidine/PF 25mg/ml syringe IV PRN ×2 (19:50→20:23)
--- NOTE | 2022-05-08 20:50 | NUR ---
PATIENT HAS MET ALL CRITERIA FOR TRANSFER TO THE ORTHO FLOOR. VSS. DRESSINGS INTACT. BED LOW, CALL LIGHT PRESENT AND 2 RAILS UP. RN PRESENT TO ACCEPT CARE OF PATIENT AND REPORT HAS BEEN CALLED. ALL QUESTIONS ANSWERED TO ACCEPTING RN. Addendum: 05/08/22 at 2120 by Valarie Mai RN Amended: Links added.
[2022-05-08] MEDS: HYDROmorphone inj. 0.5 MG/0.5 ML DISP.SYRIN IV PRN (22:17)
[2022-05-08] MEDS: HYDROmorphone 1 mg/ml syringe IV PRN (23:05)
[2022-05-09] VITALS (8 sets, daily range): BP systolic 93–153; BP diastolic 59–95
--- NOTE | 2022-05-09 00:02 | NUR ---
Patient in room ORTHO 4015. I have received report from ZHEN Orrdisaster recovery consultant and had the opportunity to ask questions and assume patient care.
[2022-05-09] MEDS: HYDROmorphone 1 mg/ml syringe IV PRN ×9 (01:01→20:59)
[2022-05-09] MEDS: dextrose 5%-normal saline 1,000 ML IV SCH ×2 (03:07→17:57)
[2022-05-09 06:26] LABS: BASOPHILS % (AUTO) 0.1 % (0-1); EOSINOPHILS % (AUTO) 0 % (0-6); HEMATOCRIT 30.9 % (42.0-52.0); HEMOGLOBIN 9.9 g/dl (14.0-17.9); LYMPHOCYTES # (AUTO) 0.6 X10'3 (1.1-4.8); MEAN CORPUSCULAR HEMOGLOBIN 25.1 PG (27.0-31.0); MEAN CORPUSCULAR HGB CONC 31.9 g/dL (33.0-36.5); MEAN CORPUSCULAR VOLUME 78.5 FL (78-98); MEAN PLATELET VOLUME 7.8 FL (7.4-10.4); MONOCYTES % (AUTO) 6.3 % (2-12); NEUTROPHILS # (AUTO) 14.3 X10'3 (1.8-7.7); NEUTROPHILS % (AUTO) 89.6 % (42-75); PLATELET COUNT 486 X10'3 (140-440); RED BLOOD COUNT 3.93 X10'6 (4.70-6.10); RED CELL DISTRIBUTION WIDTH 16.6 % (11.5-14.5); WHITE BLOOD COUNT 15.9 X10'3 (4.5-11.0)
[2022-05-09 06:29] LABS: ALBUMIN 3.2 G/DL (3.4-5.0); ANION GAP 8 (8-16); BLOOD UREA NITROGEN 4 MG/DL (7-18); CALCIUM 8.4 MG/DL (8.5-10.1); CHLORIDE 99 MMOL/L (99-107); CREATININE 0.57 MG/DL (0.60-1.10); GLUCOSE 181 MG/DL (70-104); MAGNESIUM 1.3 MG/DL (1.5-2.4); POTASSIUM 4.3 MMOL/L (3.5-5.1); SODIUM 134 MMOL/L (135-145); TOTAL CARBON DIOXIDE 26.9 MMOL/L (24-32); eGFR > 90 ML/MIN
--- NOTE | 2022-05-09 06:50 | NUR ---
Problems reprioritized. Patient report given, questions answered & plan of care reviewed with ZHEN Alvarado.
[2022-05-09] MEDS: K and/or MAG REPLACEMENT MC SCH ×3 (08:00→19:00)
[2022-05-09] MEDS: pantoprazole 40MG/NS 100ML BAG 100 ML IV SCH ×2 (10:00→19:11)
[2022-05-09] MEDS: ciprofloxacin 250mg tablet PO SCH ×2 (10:01→19:10)
[2022-05-09] MEDS: docusate sod 100mg capsule PO SCH ×2 (10:02→19:10)
[2022-05-09] MEDS: metoprolol tartrate 25mg tablet PO SCH ×2 (10:02→19:12)
[2022-05-09] MEDS: lisinopril 5mg tablet PO SCH (10:02)
[2022-05-09] MEDS: atorvastatin 20mg tablet PO SCH (10:03)
[2022-05-09] MEDS ORDERED: potassium Cl 40MEQ/1/2NS 520ml 520 ML IV PRN (10:20)
[2022-05-09] MEDS ORDERED: magnesium 4gm in 100ml NS 100 ML IV PRN (10:20)
[2022-05-09] MEDS ORDERED: potassium Cl 20 mEq SR tablet PO PRN ×2 (10:20)
--- NOTE | 2022-05-09 11:00 | NUR ---
Dc'd NGT. Pt tolerated procedure well.
--- NOTE | 2022-05-09 15:50 | NUR ---
Report given to Flori Savage STOVE INSTALLER and pt transferred to Surgical 356A with all belongings.
--- NOTE | 2022-05-09 16:00 | NUR ---
Received report from ZHEN Alvarado and received patient to the floor. Patient stable. All belongings brought to the floor with patient.
[2022-05-10] MEDS: HYDROmorphone 1 mg/ml syringe IV PRN ×6 (00:18→20:56)
[2022-05-10 06:00] VITALS: BP 90/46
[2022-05-10 06:27] LABS: ANION GAP 9 (8-16); BLOOD UREA NITROGEN 3 MG/DL (7-18); BUN/CREATININE RATIO 4.8 (10.0-20.0); CALCIUM 8.7 MG/DL (8.5-10.1); CHLORIDE 99 MMOL/L (99-107); CREATININE 0.63 MG/DL (0.60-1.10); GLUCOSE 131 MG/DL (70-104); POTASSIUM 3.5 MMOL/L (3.5-5.1); SODIUM 136 MMOL/L (135-145); TOTAL CARBON DIOXIDE 27.7 MMOL/L (24-32); eGFR > 90 ML/MIN
[2022-05-10 06:33] LABS: BASOPHILS # (AUTO) 0.1 X10'3 (0-0.2); BASOPHILS % (AUTO) 0.5 % (0-1); EOSINOPHILS # (AUTO) 0.1 X10'3 (0-0.9); EOSINOPHILS % (AUTO) 0.5 % (0-6); HEMATOCRIT 28.1 % (42.0-52.0); HEMOGLOBIN 9.1 g/dl (14.0-17.9); LYMPHOCYTES # (AUTO) 1.7 X10'3 (1.1-4.8); LYMPHOCYTES % (AUTO) 15.9 % (21-51); MEAN CORPUSCULAR HEMOGLOBIN 25.5 PG (27.0-31.0); MEAN CORPUSCULAR HGB CONC 32.5 g/dL (33.0-36.5); MEAN CORPUSCULAR VOLUME 78.3 FL (78-98); MEAN PLATELET VOLUME 8.4 FL (7.4-10.4); MONOCYTES # (AUTO) 1.3 X10'3 (0-0.9); MONOCYTES % (AUTO) 12.1 % (2-12); NEUTROPHILS # (AUTO) 7.6 X10'3 (1.8-7.7); PLATELET COUNT 423 X10'3 (140-440); RED BLOOD COUNT 3.58 X10'6 (4.70-6.10); RED CELL DISTRIBUTION WIDTH 16.7 % (11.5-14.5); WHITE BLOOD COUNT 10.7 X10'3 (4.5-11.0)
[2022-05-10] MEDS: lisinopril 5mg tablet PO SCH (08:00)
[2022-05-10] MEDS: metoprolol tartrate 25mg tablet PO SCH ×2 (08:00→19:51)
[2022-05-10] MEDS: K and/or MAG REPLACEMENT MC SCH ×4 (08:00→19:53)
[2022-05-10] MEDS: ciprofloxacin 250mg tablet PO SCH ×2 (08:07→19:52)
[2022-05-10] MEDS: docusate sod 100mg capsule PO SCH ×2 (08:07→19:51)
[2022-05-10] MEDS: pantoprazole 40MG/NS 100ML BAG 100 ML IV SCH ×2 (08:08→19:51)
[2022-05-10] MEDS: atorvastatin 20mg tablet PO SCH (08:08)
[2022-05-10] MEDS: dextrose 5%-normal saline 1,000 ML IV SCH ×2 (08:15→20:00)
[2022-05-10 11:00] VITALS: BP 92/49
[2022-05-10] MEDS: clopidogrel 75mg tablet PO SCH (12:13)
--- NOTE | 2022-05-10 13:40 | NUR ---
Initial: Pt admit DX severe constipation-resolved, GIB secondary to colon mass/CA s/p OR for colon resection 05/08 and acute blood loss anemia per EMR. LBM 05/06 receiving routine colace yet to pass gas post-op advanced to clear liquids diet this AM PO 25% first meal per EMR. Pt NPO past 5 days not meeting nutrition needs receiving D5/NS at 70ml/hr providing 286 kcals/day. IF to remain on restrictive clear liquids post-op without return of bowel function would benefit from PN to meet nutrition needs. Will continue to follow. Rec: 1. continue clear liquids diet per MD; advance as medically indicated to low-fiber 2. monitor for diet advancement and ONS needs 3. IF to remain on clears without GI function return; consider PN to meet nutrition needs 4. routine bowel care 5. daily scaled wts Addendum: 05/10/22 at [address] Amended: Links added.
[2022-05-10 18:00] VITALS: BP 96/56
[2022-05-10 20:55] VITALS: BP 118/71
[2022-05-10 22:12] VITALS: BP 97/60
[2022-05-10] MEDS: temazepam 15mg capsule PO PRN (22:14)
[2022-05-11 01:51] VITALS: BP 135/77
[2022-05-11] MEDS: HYDROmorphone 1 mg/ml syringe IV PRN ×5 (01:53→19:58)
[2022-05-11] MEDS: temazepam 15mg capsule PO PRN ×2 (02:02→20:54)
--- NOTE | 2022-05-11 06:30 | NUR ---
Patient in room JULISA 356. I have received report from Cecilia FONTAINE and had the opportunity to ask questions and assume patient care.
[2022-05-11 06:38] VITALS: BP 117/60
--- NOTE | 2022-05-11 06:45 | NUR ---
Problems reprioritized. Patient report given, questions answered & plan of care reviewed with ZHEN MON[place]NA.
[2022-05-11 07:12] VITALS: BP 121/77
[2022-05-11] MEDS: docusate sod 100mg capsule PO SCH ×2 (07:38→19:31)
[2022-05-11] MEDS: lisinopril 5mg tablet PO SCH (07:38)
[2022-05-11] MEDS: ciprofloxacin 250mg tablet PO SCH ×2 (07:38→19:31)
[2022-05-11] MEDS: clopidogrel 75mg tablet PO SCH (07:39)
[2022-05-11] MEDS: atorvastatin 20mg tablet PO SCH (07:39)
[2022-05-11] MEDS: metoprolol tartrate 25mg tablet PO SCH ×2 (07:39→19:32)
[2022-05-11] MEDS: pantoprazole 40MG/NS 100ML BAG 100 ML IV SCH ×2 (07:40→19:31)
[2022-05-11] MEDS: K and/or MAG REPLACEMENT MC SCH ×4 (08:00→19:27)
[2022-05-11 09:55] VITALS: BP 115/75
[2022-05-11] MEDS: magnesium Cl slow-release 64mg tablet PO PRN (10:26)
[2022-05-11] MEDS: dextrose 5%-normal saline 1,000 ML IV SCH (12:37)
[2022-05-11 18:00] VITALS: BP 114/69
--- NOTE | 2022-05-11 18:15 | NUR ---
Problems reprioritized. Patient report given, questions answered & plan of care reviewed with Freddy FONTANIE.
[2022-05-11 22:00] VITALS: BP 108/71
[2022-05-12] MEDS: magnesium Cl slow-release 64mg tablet PO PRN
[2022-05-12] MEDS: HYDROmorphone 1 mg/ml syringe IV PRN ×4 (00:02→14:21)
[2022-05-12] MEDS: temazepam 15mg capsule PO PRN (01:44)
[2022-05-12] MEDS: dextrose 5%-normal saline 1,000 ML IV SCH (01:44)
[2022-05-12 06:04] VITALS: BP 149/88
[2022-05-12 07:45] VITALS: BP 152/91
[2022-05-12] MEDS: K and/or MAG REPLACEMENT MC SCH ×2 (08:00)
[2022-05-12] MEDS: ciprofloxacin 250mg tablet PO SCH (08:14)
[2022-05-12] MEDS: docusate sod 100mg capsule PO SCH (08:15)
[2022-05-12] MEDS: atorvastatin 20mg tablet PO SCH (08:15)
[2022-05-12] MEDS: metoprolol tartrate 25mg tablet PO SCH (08:17)
[2022-05-12] MEDS: lisinopril 5mg tablet PO SCH (08:19)
[2022-05-12] MEDS: clopidogrel 75mg tablet PO SCH (08:19)
[2022-05-12] MEDS: pantoprazole 40MG/NS 100ML BAG 100 ML IV SCH (08:59)
[2022-05-12 10:26] VITALS: BP 114/72
--- NOTE | 2022-05-12 13:04 | NUR ---
PAGER ID: [phone] MESSAGE: [phone] Carissa Hopkins: patient cleared for discharge by . thanksjess [phone]
[2022-05-12] MEDS ORDERED: HYDR-3965 PO ×2 (13:13→13:28)
--- NOTE | 2022-05-12 15:05 | NUR ---
Patient stable and appropriate for discharge home with his mother. IV and awake overnight monitor removed. New RX given to patient. All discharge instructions and education given and reviewed with patient, all questions answered. home medications were returned to patient from pharmacy. Additional dressing change supplies given to patient per MD request.
== END 2022-05-12 15:00 | disposition home or self-care (01) | DRG 330 ==
LOC: ER 08:01 → ED HOLD 17:29 → PCU 3S 21:00 → ORTHO 4S 05-07 23:48 → SUR 3N 05-09 15:57
PROVIDERS: ADMIT Family Medicine; ATTEND Family Medicine
PROC: BW211ZZ Computerized Tomography (CT Scan) of Abdomen and Pelvis using Low Osmolar Contrast (ICD-10-PCS; 2022-05-05)
PROC: 0DBL8ZX Excision of Transverse Colon, Via Natural or Artificial Opening Endoscopic, Diagnostic (ICD-10-PCS; 2022-05-06)
PROC: 0DB58ZX Excision of Esophagus, Via Natural or Artificial Opening Endoscopic, Diagnostic (ICD-10-PCS; 2022-05-06)
PROC: 0DB68ZX Excision of Stomach, Via Natural or Artificial Opening Endoscopic, Diagnostic (ICD-10-PCS; 2022-05-06)
PROC: 07BB0ZZ Excision of Mesenteric Lymphatic, Open Approach (ICD-10-PCS; 2022-05-08)
PROC: 3E0T3BZ Introduction of Anesthetic Agent into Peripheral Nerves and Plexi, Percutaneous Approach (ICD-10-PCS; 2022-05-08)
PROC: 3E0T33Z Introduction of Anti-inflammatory into Peripheral Nerves and Plexi, Percutaneous Approach (ICD-10-PCS; 2022-05-08)
PROC: 0DBL0ZZ Excision of Transverse Colon, Open Approach (ICD-10-PCS; principal; 2022-05-08 17:35)
DX: C18.5 Malignant neoplasm of splenic flexure (principal); D62 Acute posthemorrhagic anemia; K56.691 Other complete intestinal obstruction; E78.5 Hyperlipidemia, unspecified; I10 Essential (primary) hypertension; K59.00 Constipation, unspecified; D49.0 Neoplasm of unspecified behavior of digestive system; K21.00 Gastro-esophageal reflux disease with esophagitis, without bleeding; I25.10 Atherosclerotic heart disease of native coronary artery without angina pectoris; I25.2 Old myocardial infarction; Z79.02 Long term (current) use of antithrombotics/antiplatelets; Z80.0 Family history of malignant neoplasm of digestive organs; Z83.3 Family history of diabetes mellitus; Z87.891 Personal history of nicotine dependence; Z95.5 Presence of coronary angioplasty implant and graft; Z79.899 Other long term (current) drug therapy
CPT/HCPCS: 43239; 45380; 45381; 96365; 99285; Z7506; Z7508; 36415; 74177; 80047; 80048; 80053; 81001; 82948; 83690; 83735; 85008; 85025; 85610; 85730; 86885; 86900; 86901; 86920; 87081; 93005; 99152; 99153; A4618; A4620; A5200; A6446; A6449; A7000; C9113; C9290; G0378; J0131; J1100; J1170; J2175; J2250; J2270; J2405; J2704; J3010; J3475; J3490; J7030; J7042; J7070; J7120; Q9967

== ENCOUNTER 2022-05-23 18:25 | Inpatient (IN) | payer BC ==
[~2022-05-23] VITALS: Ht 172.7 cm; Wt 48.0 kg
[~2022-05-23 18:25] MED LIST changes: -ASPI-1071 PO; -CIPR-202 PO; +CLOP75TA33 PO; -CLOP75TA34 PO; -LOP25T PO; -METF-1203 PO; +METO25TA6 PO; -METR-159 PO; -ONDA4TAB12 PO
[2022-05-23 19:16] LABS: BASOPHILS # (AUTO) 0.1 X10'3 (0-0.2); BASOPHILS % (AUTO) 0.7 % (0-1); EOSINOPHILS # (AUTO) 0.3 X10'3 (0-0.9); EOSINOPHILS % (AUTO) 2.7 % (0-6); HEMATOCRIT 22.2 % (42.0-52.0); LYMPHOCYTES # (AUTO) 1.9 X10'3 (1.1-4.8); LYMPHOCYTES % (AUTO) 15.9 % (21-51); MEAN CORPUSCULAR HEMOGLOBIN 24.2 PG (27.0-31.0); MEAN CORPUSCULAR HGB CONC 31.6 g/dL (33.0-36.5); MEAN CORPUSCULAR VOLUME 76.4 FL (78-98); MEAN PLATELET VOLUME 7.3 FL (7.4-10.4); MONOCYTES # (AUTO) 0.6 X10'3 (0-0.9); MONOCYTES % (AUTO) 5.1 % (2-12); NEUTROPHILS # (AUTO) 9.1 X10'3 (1.8-7.7); NEUTROPHILS % (AUTO) 75.6 % (42-75); PLATELET COUNT 534 X10'3 (140-440); RED CELL DISTRIBUTION WIDTH 17.4 % (11.5-14.5)
[2022-05-23 19:28] LABS: ALANINE AMINOTRANSFERASE 33 U/L (12-78); ALBUMIN 3.7 G/DL (3.4-5.0); ALBUMIN/GLOBULIN RATIO 1.2 (1.1-1.5); ALKALINE PHOSPHATASE 69 IU/L (46-116); ANION GAP 9 (8-16); ASPARTATE AMINO TRANSFERASE 16 U/L (10-37); BILIRUBIN,TOTAL 0.2 MG/DL (0.1-1.0); BLOOD UREA NITROGEN 15 MG/DL (7-18); BUN/CREATININE RATIO 18.5 (10.0-20.0); CALCIUM 9.3 MG/DL (8.5-10.1); CHLORIDE 97 MMOL/L (99-107); CREATININE 0.81 MG/DL (0.60-1.10); GLUCOSE 236 MG/DL (70-104); LIPASE 103 U/L (73-393); POTASSIUM 4.2 MMOL/L (3.5-5.1); SODIUM 135 MMOL/L (135-145); TOTAL CARBON DIOXIDE 29.2 MMOL/L (24-32); TOTAL PROTEIN 6.8 G/DL (6.4-8.2); eGFR > 90 ML/MIN
--- NOTE | 2022-05-23 21:00 | NUR ---
3 NG TUBE INSERTIONS UNSUCCESFUL, CONTACTED ROGERS FONTAINE TO ATTEMPT
[2022-05-23] MEDS ORDERED: tranexamic acid inj. 1,000 MG in normal saline 100ml IV soln 90 ML IV ONE (21:40)
[2022-05-23] MEDS ORDERED: LIDOcaine Viscous 15ml cup MM ONE (21:40)
[2022-05-23 21:56] LABS: APTT 22 SECONDS (22-32)
[2022-05-23] MEDS ORDERED: acetaminophen 325mg tablet PO PRN ×2 (22:25)
[2022-05-23] MEDS ORDERED: magnesium 4gm in 100ml NS 100 ML IV PRN (22:25)
[2022-05-23] MEDS ORDERED: morphine 2 MG/ML inj. syringe IV PRN (22:25)
[2022-05-23] MEDS: normal saline 1000ml 1,000 ML IV SCH (22:25)
[2022-05-23] MEDS ORDERED: potassium Cl 40MEQ/1/2NS 520ml 520 ML IV PRN (22:25)
[2022-05-23] MEDS ORDERED: magnesium 2GM in 50ml NS 50 ML IV PRN (22:25)
[2022-05-23] MEDS ORDERED: potassium Cl 20 mEq SR tablet PO PRN ×2 (22:25)
[2022-05-23] MEDS ORDERED: magnesium Cl slow-release 64mg tablet PO PRN (22:25)
[2022-05-23] MEDS ORDERED: ondansetron/PF 4mg/2ml inj IV PRN (22:25)
[2022-05-23 22:58] VITALS: BP 114/71
[2022-05-23 23:15] VITALS: BP 110/73
[2022-05-24] VITALS (8 sets, daily range): BP systolic 97–122; BP diastolic 55–75
[2022-05-24] MEDS ORDERED: PEG 3350/Na sulf,bicarb,Cl/KCl oral sol 4 liter bottle PO ONE (00:30)
[2022-05-24] MEDS: pantoprazole 40MG/NS 100ML BAG 100 ML IV SCH ×5 (01:00→21:00)
[2022-05-24 04:35] LABS: BASOPHILS # (AUTO) 0.1 X10'3 (0-0.2); BASOPHILS % (AUTO) 1.3 % (0-1); EOSINOPHILS # (AUTO) 0.5 X10'3 (0-0.9); EOSINOPHILS % (AUTO) 5.2 % (0-6); HEMATOCRIT 27.3 % (42.0-52.0); HEMOGLOBIN 9.1 g/dl (14.0-17.9); LYMPHOCYTES # (AUTO) 2.7 X10'3 (1.1-4.8); LYMPHOCYTES % (AUTO) 27.4 % (21-51); MEAN CORPUSCULAR HEMOGLOBIN 26.4 PG (27.0-31.0); MEAN CORPUSCULAR HGB CONC 33.2 g/dL (33.0-36.5); MEAN CORPUSCULAR VOLUME 79.4 FL (78-98); MEAN PLATELET VOLUME 7.2 FL (7.4-10.4); MONOCYTES # (AUTO) 0.8 X10'3 (0-0.9); MONOCYTES % (AUTO) 8.4 % (2-12); NEUTROPHILS # (AUTO) 5.6 X10'3 (1.8-7.7); NEUTROPHILS % (AUTO) 57.7 % (42-75); PLATELET COUNT 458 X10'3 (140-440); RED BLOOD COUNT 3.44 X10'6 (4.70-6.10); RED CELL DISTRIBUTION WIDTH 18.1 % (11.5-14.5); WHITE BLOOD COUNT 9.7 X10'3 (4.5-11.0)
[2022-05-24 04:48] LABS: ALANINE AMINOTRANSFERASE 32 U/L (12-78); ALBUMIN 3.5 G/DL (3.4-5.0); ALBUMIN/GLOBULIN RATIO 1.2 (1.1-1.5); ALKALINE PHOSPHATASE 63 IU/L (46-116); ANION GAP 7 (8-16); ASPARTATE AMINO TRANSFERASE 20 U/L (10-37); BILIRUBIN,TOTAL 0.7 MG/DL (0.1-1.0); BLOOD UREA NITROGEN 11 MG/DL (7-18); BUN/CREATININE RATIO 17.2 (10.0-20.0); CALCIUM 9.1 MG/DL (8.5-10.1); CHLORIDE 99 MMOL/L (99-107); CREATININE 0.64 MG/DL (0.60-1.10); GLUCOSE 102 MG/DL (70-104); POTASSIUM 4.3 MMOL/L (3.5-5.1); SODIUM 135 MMOL/L (135-145); TOTAL PROTEIN 6.5 G/DL (6.4-8.2); eGFR > 90 ML/MIN
[2022-05-24] MEDS ORDERED: MAGN400T29 PO (05:38)
[2022-05-24] MEDS ORDERED: FLO0.4C PO (05:38)
[2022-05-24] MEDS ORDERED: ASPI-1071 PO (05:38)
[2022-05-24] MEDS ORDERED: HYDR-3964 PO (05:39)
[2022-05-24] MEDS: normal saline 1000ml 1,000 ML IV SCH ×2 (07:58→18:25)
[2022-05-24] MEDS ORDERED: morphine 4 MG/ML inj SYRINge IV PRN ×2 (09:15)
[2022-05-24 09:30] LABS: CLARITY,URINE CLEAR (Clear); COLOR,URINE STRAW (Yellow); GLUCOSE, URINE NEGATIVE (Neg); KETONES,URINE NEGATIVE (Neg); LEUKOCYTE ESTERASE ,URINE NEGATIVE (Neg); NITRITES, URINE NEGATIVE (Neg); OCCULT BLOOD,URINE NEGATIVE (Neg); PROTEIN,URINE NEGATIVE (Neg); UROBILINOGEN,URINE 0.2 E.U/dL (0.2-1.0)
--- NOTE | 2022-05-24 09:35 | NUR ---
UPDATED DR BALLESTEROS OVER THE TELEPHONE, HE ADVISES THAT THEY WILL BE CONDUCTING A COLONOSCOPY FOR THE PT TODAY.
[2022-05-24 09:37] LABS: UA COLLECTION TYPE CLN CATCH MIDSTREAM
[2022-05-24] MEDS ORDERED: fentaNYL/PF 50MCG/1 ML 2ML syringe ONE (10:58)
[2022-05-24] MEDS ORDERED: MIDAZolam 1 MG/ML 5ML VIAL ONE (10:58)
[2022-05-24 11:15] LABS: BASOPHILS # (AUTO) 0.1 X10'3 (0-0.2); BASOPHILS % (AUTO) 1.1 % (0-1); EOSINOPHILS # (AUTO) 0.4 X10'3 (0-0.9); EOSINOPHILS % (AUTO) 4.2 % (0-6); HEMATOCRIT 24.9 % (42.0-52.0); HEMOGLOBIN 8.2 g/dl (14.0-17.9); LYMPHOCYTES # (AUTO) 2.5 X10'3 (1.1-4.8); LYMPHOCYTES % (AUTO) 26.7 % (21-51); MEAN CORPUSCULAR HEMOGLOBIN 26.1 PG (27.0-31.0); MEAN CORPUSCULAR HGB CONC 32.8 g/dL (33.0-36.5); MEAN CORPUSCULAR VOLUME 79.6 FL (78-98); MEAN PLATELET VOLUME 7.4 FL (7.4-10.4); MONOCYTES # (AUTO) 0.7 X10'3 (0-0.9); MONOCYTES % (AUTO) 7.2 % (2-12); NEUTROPHILS # (AUTO) 5.8 X10'3 (1.8-7.7); NEUTROPHILS % (AUTO) 60.8 % (42-75); PLATELET COUNT 457 X10'3 (140-440); RED BLOOD COUNT 3.13 X10'6 (4.70-6.10); RED CELL DISTRIBUTION WIDTH 17.8 % (11.5-14.5); WHITE BLOOD COUNT 9.5 X10'3 (4.5-11.0)
[2022-05-24] MEDS ORDERED: epiNEPHrine 0.1mg/ml 10ml syringe ONE (11:33)
--- NOTE | 2022-05-24 19:00 | NUR ---
DINNER MEAL TRAY GIVEN TO PT
[2022-05-24 19:31] LABS: BASOPHILS # (AUTO) 0.1 X10'3 (0-0.2); BASOPHILS % (AUTO) 1.1 % (0-1); EOSINOPHILS # (AUTO) 0.4 X10'3 (0-0.9); EOSINOPHILS % (AUTO) 4.2 % (0-6); HEMATOCRIT 23.8 % (42.0-52.0); HEMOGLOBIN 7.9 g/dl (14.0-17.9); LYMPHOCYTES # (AUTO) 3.3 X10'3 (1.1-4.8); LYMPHOCYTES % (AUTO) 34.2 % (21-51); MEAN CORPUSCULAR HGB CONC 32.9 g/dL (33.0-36.5); MEAN PLATELET VOLUME 7.3 FL (7.4-10.4); MONOCYTES # (AUTO) 0.7 X10'3 (0-0.9); MONOCYTES % (AUTO) 7.5 % (2-12); NEUTROPHILS # (AUTO) 5.2 X10'3 (1.8-7.7); PLATELET COUNT 424 X10'3 (140-440); RED BLOOD COUNT 3.02 X10'6 (4.70-6.10); RED CELL DISTRIBUTION WIDTH 17.8 % (11.5-14.5); WHITE BLOOD COUNT 9.8 X10'3 (4.5-11.0)
[2022-05-24] MEDS ORDERED: temazepam 15mg capsule PO ONE (21:50)
[2022-05-25] VITALS (8 sets, daily range): BP systolic 84–134; BP diastolic 44–92
[2022-05-25] MEDS: pantoprazole 40MG/NS 100ML BAG 100 ML IV SCH ×2 (01:27→06:00)
[2022-05-25 04:03] LABS: BASOPHILS # (AUTO) 0.1 X10'3 (0-0.2); BASOPHILS % (AUTO) 1.6 % (0-1); EOSINOPHILS # (AUTO) 0.4 X10'3 (0-0.9); EOSINOPHILS % (AUTO) 5.2 % (0-6); HEMATOCRIT 22.1 % (42.0-52.0); HEMOGLOBIN 7.3 g/dl (14.0-17.9); LYMPHOCYTES # (AUTO) 2.8 X10'3 (1.1-4.8); MEAN CORPUSCULAR HGB CONC 32.8 g/dL (33.0-36.5); MEAN CORPUSCULAR VOLUME 79.1 FL (78-98); MEAN PLATELET VOLUME 7.6 FL (7.4-10.4); MONOCYTES # (AUTO) 0.5 X10'3 (0-0.9); MONOCYTES % (AUTO) 6.1 % (2-12); NEUTROPHILS # (AUTO) 3.7 X10'3 (1.8-7.7); NEUTROPHILS % (AUTO) 49.1 % (42-75); PLATELET COUNT 396 X10'3 (140-440); RED CELL DISTRIBUTION WIDTH 17.9 % (11.5-14.5); WHITE BLOOD COUNT 7.5 X10'3 (4.5-11.0)
[2022-05-25 04:09] LABS: ALANINE AMINOTRANSFERASE 32 U/L (12-78); ALBUMIN 2.8 G/DL (3.4-5.0); ALBUMIN/GLOBULIN RATIO 1.1 (1.1-1.5); ALKALINE PHOSPHATASE 54 IU/L (46-116); ANION GAP 5 (8-16); ASPARTATE AMINO TRANSFERASE 20 U/L (10-37); BILIRUBIN,TOTAL 0.3 MG/DL (0.1-1.0); BLOOD UREA NITROGEN 5 MG/DL (7-18); BUN/CREATININE RATIO 8.2 (10.0-20.0); CALCIUM 8.7 MG/DL (8.5-10.1); CHLORIDE 105 MMOL/L (99-107); CREATININE 0.61 MG/DL (0.60-1.10); GLUCOSE 96 MG/DL (70-104); POTASSIUM 4.2 MMOL/L (3.5-5.1); SODIUM 139 MMOL/L (135-145); TOTAL CARBON DIOXIDE 29.3 MMOL/L (24-32); TOTAL PROTEIN 5.3 G/DL (6.4-8.2); eGFR > 90 ML/MIN
[2022-05-25] MEDS: normal saline 1000ml 1,000 ML IV SCH ×2 (04:25→14:25)
[2022-05-25 11:19] LABS: BASOPHILS # (AUTO) 0.1 X10'3 (0-0.2); BASOPHILS % (AUTO) 1.4 % (0-1); EOSINOPHILS # (AUTO) 0.3 X10'3 (0-0.9); EOSINOPHILS % (AUTO) 4.7 % (0-6); HEMATOCRIT 27.2 % (42.0-52.0); HEMOGLOBIN 8.8 g/dl (14.0-17.9); LYMPHOCYTES # (AUTO) 1.5 X10'3 (1.1-4.8); LYMPHOCYTES % (AUTO) 22.3 % (21-51); MEAN CORPUSCULAR HEMOGLOBIN 26.3 PG (27.0-31.0); MEAN CORPUSCULAR HGB CONC 32.4 g/dL (33.0-36.5); MEAN PLATELET VOLUME 7.4 FL (7.4-10.4); MONOCYTES # (AUTO) 0.5 X10'3 (0-0.9); MONOCYTES % (AUTO) 7.5 % (2-12); NEUTROPHILS # (AUTO) 4.4 X10'3 (1.8-7.7); NEUTROPHILS % (AUTO) 64.1 % (42-75); PLATELET COUNT 402 X10'3 (140-440); RED BLOOD COUNT 3.36 X10'6 (4.70-6.10); RED CELL DISTRIBUTION WIDTH 17.6 % (11.5-14.5); WHITE BLOOD COUNT 6.8 X10'3 (4.5-11.0)
[2022-05-25 12:29] LABS: HEMOGLOBIN A1C 5.8 % (4.5-6.2)
[2022-05-25] MEDS ORDERED: clopidogrel 75mg tablet PO ONE (15:35)
--- NOTE | 2022-05-25 15:36 | NUR ---
Noted pt low BMI 16.1 pt supposedly 48kg via chair scale however current wt not accurate given pt recent 05/05 admit multiple consistent scaled weights of 64.8kg making true BMI 21.7. Would benefit from true scaled wt this admit. Addendum: 05/25/22 at [address] Amended: Links added.
[2022-05-25] MEDS: atorvastatin 20mg tablet PO SCH (16:36)
[2022-05-25] MEDS: tamsulosin 0.4mg capsule PO SCH (16:36)
--- NOTE | 2022-05-25 18:40 | NUR ---
Patient in room JULISA 344. I have received report from Yudi FONTAINE and had the opportunity to ask questions and assume patient care.
--- NOTE | 2022-05-25 18:42 | NUR ---
Report to Lidia FONTAINE
[2022-05-25] MEDS: HYDROcodone/acetaminophen 5mg/325mg tablet PO PRN (19:00)
[2022-05-25] MEDS ORDERED: temazepam 15mg capsule PO ONE (21:50)
[2022-05-26] MEDS: normal saline 1000ml 1,000 ML IV SCH (00:25)
[2022-05-26] MEDS: HYDROcodone/acetaminophen 5mg/325mg tablet PO PRN (05:48)
[2022-05-26 06:00] LABS: BASOPHILS # (AUTO) 0.1 X10'3 (0-0.2); HEMOGLOBIN 8.8 g/dl (14.0-17.9); MEAN PLATELET VOLUME 7.6 FL (7.4-10.4); RED BLOOD COUNT 3.31 X10'6 (4.70-6.10)
[2022-05-26 06:02] LABS: BASOPHILS % (AUTO) 1.1 % (0-1); EOSINOPHILS # (AUTO) 0.4 X10'3 (0-0.9); EOSINOPHILS % (AUTO) 6.2 % (0-6); HEMATOCRIT 26.7 % (42.0-52.0); LYMPHOCYTES # (AUTO) 1.8 X10'3 (1.1-4.8); MEAN CORPUSCULAR HEMOGLOBIN 26.6 PG (27.0-31.0); MEAN CORPUSCULAR VOLUME 80.8 FL (78-98); MONOCYTES # (AUTO) 0.6 X10'3 (0-0.9); MONOCYTES % (AUTO) 8.2 % (2-12); NEUTROPHILS # (AUTO) 3.9 X10'3 (1.8-7.7); NEUTROPHILS % (AUTO) 57.5 % (42-75); PLATELET COUNT 442 X10'3 (140-440); RED CELL DISTRIBUTION WIDTH 18.3 % (11.5-14.5); WHITE BLOOD COUNT 6.8 X10'3 (4.5-11.0)
--- NOTE | 2022-05-26 06:08 | NUR ---
Patient has been drinking his own drink thru out the night. Patient denies having any blood in urine or in the small watery poop that he said he had had before midnight.
--- NOTE | 2022-05-26 06:09 | NUR ---
Problems reprioritized. Patient report given, questions answered & plan of care reviewed with Yudi FONTAINE.
[2022-05-26 06:12] LABS: ALANINE AMINOTRANSFERASE 31 U/L (12-78); ALBUMIN/GLOBULIN RATIO 1.1 (1.1-1.5); ALKALINE PHOSPHATASE 61 IU/L (46-116); ANION GAP 5 (8-16); ASPARTATE AMINO TRANSFERASE 17 U/L (10-37); BILIRUBIN,TOTAL 0.3 MG/DL (0.1-1.0); BLOOD UREA NITROGEN 5 MG/DL (7-18); BUN/CREATININE RATIO 6.8 (10.0-20.0); CALCIUM 8.9 MG/DL (8.5-10.1); CHLORIDE 103 MMOL/L (99-107); CREATININE 0.73 MG/DL (0.60-1.10); GLUCOSE 99 MG/DL (70-104); POTASSIUM 4.2 MMOL/L (3.5-5.1); SODIUM 139 MMOL/L (135-145); TOTAL CARBON DIOXIDE 30.9 MMOL/L (24-32); TOTAL PROTEIN 5.8 G/DL (6.4-8.2); eGFR > 90 ML/MIN
[2022-05-26 06:55] VITALS: BP 120/70
[2022-05-26] MEDS: tamsulosin 0.4mg capsule PO SCH (08:52)
[2022-05-26] MEDS: atorvastatin 20mg tablet PO SCH (08:53)
[2022-05-26 10:00] VITALS: BP 104/54
== END 2022-05-26 11:30 | disposition home or self-care (01) | DRG 395 ==
LOC: ER 18:26 → ED HOLD 22:26 → EDBEDREQ 05-25 01:11 → SUR 3N 05-25 08:10
PROVIDERS: ADMIT Internal Medicine; ATTEND Family Medicine
PROC: 30233N1 Transfusion of Nonautologous Red Blood Cells into Peripheral Vein, Percutaneous Approach (ICD-10-PCS; 2022-05-23)
PROC: 0W3P8ZZ Control Bleeding in Gastrointestinal Tract, Via Natural or Artificial Opening Endoscopic (ICD-10-PCS; principal; 2022-05-24)
DX: K91.89 Other postprocedural complications and disorders of digestive system (principal); D64.9 Anemia, unspecified; I10 Essential (primary) hypertension; I25.10 Atherosclerotic heart disease of native coronary artery without angina pectoris; N40.0 Benign prostatic hyperplasia without lower urinary tract symptoms; F10.20 Alcohol dependence, uncomplicated; I25.2 Old myocardial infarction; Z79.02 Long term (current) use of antithrombotics/antiplatelets; Z79.82 Long term (current) use of aspirin; Z79.899 Other long term (current) drug therapy; Z80.0 Family history of malignant neoplasm of digestive organs; Z83.3 Family history of diabetes mellitus; Z85.048 Personal history of other malignant neoplasm of rectum, rectosigmoid junction, and anus; Z90.49 Acquired absence of other specified parts of digestive tract; Z95.5 Presence of coronary angioplasty implant and graft; Z87.891 Personal history of nicotine dependence; I95.9 Hypotension, unspecified
CPT/HCPCS: 36415; 36430; 45382; 80053; 81003; 82948; 83036; 83605; 83690; 84145; 85025; 85610; 85730; 86885; 86900; 86901; 86920; 87040; 87081; 96365; 99152; 99153; 99285; A4620; C9113; G0378; J0171; J2250; J2270; J2405; J3010; J3490; J7030; J7040; P9016

== ENCOUNTER 2023-12-05 14:00 | Inpatient (IN) | payer BC ==
[~2023-12-05] VITALS: Ht 172.7 cm; Wt 71.8 kg
[~2023-12-05 14:00] MED LIST changes: +FLO0.4C PO; +HYDR-3964 PO; -HYDR-3965 PO; +MAGN400T29 PO
[2023-12-05] MEDS: ondansetron/PF 4mg/2ml inj IV ONE (14:15)
[2023-12-05] MEDS ORDERED: pantoprazole 40mg IV 80 MG in normal saline 100ml IV soln 100 ML IV ONE (14:15)
[2023-12-05] MEDS: normal saline 1000ML IV soln IV ONE (14:15)
[2023-12-05] MEDS ORDERED: pantoprazole 40MG/NS 100ML BAG 100 ML IV ONE (14:20)
[2023-12-05 14:25] LABS: BASOPHILS # (AUTO) 0.1 X10'3 (0-0.2); BASOPHILS % (AUTO) 0.5 % (0-1); EOSINOPHILS % (AUTO) 0.1 % (0-6); HEMATOCRIT 33.7 % (42.0-52.0); HEMOGLOBIN 11.4 g/dl (14.0-17.9); LYMPHOCYTES # (AUTO) 2.6 X10'3 (1.1-4.8); MEAN CORPUSCULAR HEMOGLOBIN 32.5 PG (27.0-31.0); MEAN CORPUSCULAR HGB CONC 33.9 g/dL (33.0-36.5); MEAN CORPUSCULAR VOLUME 95.7 FL (78-98); MONOCYTES # (AUTO) 1.5 X10'3 (0-0.9); MONOCYTES % (AUTO) 8.9 % (2-12); NEUTROPHILS % (AUTO) 75.5 % (42-75); PLATELET COUNT 253 X10'3 (140-440); RED BLOOD COUNT 3.52 X10'6 (4.70-6.10); RED CELL DISTRIBUTION WIDTH 12.8 % (11.5-14.5); WHITE BLOOD COUNT 17.3 X10'3 (4.5-11.0)
[2023-12-05 14:36] LABS: APTT 22 SECONDS (22-32); INR 1.1 INR
[2023-12-05] MEDS: pantoprazole 40 MG vial IV ONE (14:36)
[2023-12-05 14:38] LABS: ALANINE AMINOTRANSFERASE 105 U/L (12-78); ALBUMIN/GLOBULIN RATIO 1.1 (1.1-1.5); ALKALINE PHOSPHATASE 57 IU/L (46-116); ANION GAP 18 (8-16); ASPARTATE AMINO TRANSFERASE 111 U/L (10-37); BILIRUBIN,DIRECT 0.3 MG/DL (0-0.3); BILIRUBIN,TOTAL 1.5 MG/DL (0.1-1.0); BLOOD UREA NITROGEN 59 MG/DL (7-18); BUN/CREATININE RATIO 26.3 (10.0-20.0); CALCIUM 9.2 MG/DL (8.5-10.1); CHLORIDE 88 MMOL/L (99-107); CREATININE 2.24 MG/DL (0.60-1.10); GLUCOSE 282 MG/DL (70-104); POTASSIUM 5.2 MMOL/L (3.5-5.1); SODIUM 129 MMOL/L (135-145); TOTAL CARBON DIOXIDE 22.7 MMOL/L (24-32); TOTAL PROTEIN 7.5 G/DL (6.4-8.2); eCRCL 39 ML/MIN; eGFR 31 ML/MIN
[2023-12-05] MEDS: pantoprazole 40MG/NS 100ML BAG 100 ML IV SCH ×2 (15:41→21:02)
[2023-12-05] MEDS ORDERED: potassium Cl 20 mEq SR tablet PO PRN ×2 (16:20)
[2023-12-05] MEDS ORDERED: potassium Cl 40MEQ/1/2NS 520ml 520 ML IV PRN (16:20)
[2023-12-05] MEDS ORDERED: HYDROcodone/acetaminophen 5mg/325mg tablet PO PRN (16:20)
[2023-12-05] MEDS ORDERED: acetaminophen 325mg tablet PO PRN ×2 (16:20)
[2023-12-05] MEDS ORDERED: LORazepam 1 MG tablet PO PRN (16:30)
[2023-12-05] MEDS ORDERED: LORazepam 2 mg/ml vial IV PRN (16:30)
[2023-12-05] MEDS: normal saline 1000ml 1,000 ML IV SCH (17:11)
[2023-12-05 19:54] LABS: BILIRUBIN,URINE SMALL (Neg); CLARITY,URINE CLEAR (Clear); COLOR,URINE YELLOW (Yellow); GLUCOSE, URINE 250 mg/dl (Neg); KETONES,URINE >=80 mg/dl (Neg); LEUKOCYTE ESTERASE ,URINE NEGATIVE (Neg); NITRITES, URINE NEGATIVE (Neg); OCCULT BLOOD,URINE NEGATIVE (Neg); PROTEIN,URINE NEGATIVE (Neg); UROBILINOGEN,URINE 0.2 E.U/dL (0.2-1.0)
[2023-12-05 20:00] LABS: UA COLLECTION TYPE CLN CATCH MIDSTREAM
[2023-12-05] MEDS: ondansetron/PF 4mg/2ml inj IV PRN (20:17)
[2023-12-05 20:23] LABS: HEMATOCRIT 25.7 % (42.0-52.0); HEMOGLOBIN 8.9 g/dl (14.0-17.9); MEAN CORPUSCULAR HEMOGLOBIN 32.6 PG (27.0-31.0); MEAN CORPUSCULAR HGB CONC 34.5 g/dL (33.0-36.5); MEAN CORPUSCULAR VOLUME 94.4 FL (78-98); MEAN PLATELET VOLUME 8.8 FL (7.4-10.4); PLATELET COUNT 202 X10'3 (140-440); RED BLOOD COUNT 2.72 X10'6 (4.70-6.10)
[2023-12-05 21:52] LABS: OCCULT BLOOD STOOL POSITIVE (Neg)
[2023-12-06] VITALS (19 sets, daily range): BP systolic 97–140; BP diastolic 54–83; PULSE 69–105; RESP 10–18; TEMP 97.8–98.7; O2SAT 97–100
[2023-12-06 00:39] LABS: HEMOGLOBIN 7.3 g/dl (14.0-17.9); MEAN CORPUSCULAR HEMOGLOBIN 32.9 PG (27.0-31.0); MEAN CORPUSCULAR HGB CONC 34.7 g/dL (33.0-36.5); MEAN CORPUSCULAR VOLUME 94.7 FL (78-98); MEAN PLATELET VOLUME 8.8 FL (7.4-10.4); PLATELET COUNT 156 X10'3 (140-440); RED BLOOD COUNT 2.21 X10'6 (4.70-6.10); RED CELL DISTRIBUTION WIDTH 12.8 % (11.5-14.5); WHITE BLOOD COUNT 10.9 X10'3 (4.5-11.0)
[2023-12-06 00:43] LABS: HEMATOCRIT 20.9 % (42.0-52.0)
[2023-12-06] MEDS ORDERED: ASPI-611 PO (03:20)
[2023-12-06 03:57] LABS: BASOPHILS % (AUTO) 0.3 % (0-1); EOSINOPHILS % (AUTO) 0 % (0-6); HEMATOCRIT 23.2 % (42.0-52.0); HEMOGLOBIN 8.2 g/dl (14.0-17.9); LYMPHOCYTES # (AUTO) 1.3 X10'3 (1.1-4.8); LYMPHOCYTES % (AUTO) 12.8 % (21-51); MEAN CORPUSCULAR HEMOGLOBIN 32.5 PG (27.0-31.0); MEAN CORPUSCULAR HGB CONC 35.2 g/dL (33.0-36.5); MEAN CORPUSCULAR VOLUME 92.4 FL (78-98); MEAN PLATELET VOLUME 8.2 FL (7.4-10.4); MONOCYTES % (AUTO) 9.4 % (2-12); NEUTROPHILS # (AUTO) 7.9 X10'3 (1.8-7.7); NEUTROPHILS % (AUTO) 77.5 % (42-75); PLATELET COUNT 138 X10'3 (140-440); RED BLOOD COUNT 2.51 X10'6 (4.70-6.10); RED CELL DISTRIBUTION WIDTH 13.8 % (11.5-14.5); WHITE BLOOD COUNT 10.2 X10'3 (4.5-11.0)
[2023-12-06 04:18] LABS: ALANINE AMINOTRANSFERASE 58 U/L (12-78); ALBUMIN 2.9 G/DL (3.4-5.0); ALBUMIN/GLOBULIN RATIO 1.2 (1.1-1.5); ALKALINE PHOSPHATASE 33 IU/L (46-116); ANION GAP 10 (8-16); ASPARTATE AMINO TRANSFERASE 56 U/L (10-37); BILIRUBIN,TOTAL 0.8 MG/DL (0.1-1.0); BLOOD UREA NITROGEN 58 MG/DL (7-18); BUN/CREATININE RATIO 46.8 (10.0-20.0); CALCIUM 7.5 MG/DL (8.5-10.1); CHLORIDE 101 MMOL/L (99-107); CREATININE 1.24 MG/DL (0.60-1.10); GLUCOSE 232 MG/DL (70-104); LIPASE 137 U/L (16-77); MAGNESIUM 1.8 MG/DL (1.5-2.4); POTASSIUM 4.7 MMOL/L (3.5-5.1); SODIUM 136 MMOL/L (135-145); TOTAL CARBON DIOXIDE 24.8 MMOL/L (24-32); TOTAL PROTEIN 5.4 G/DL (6.4-8.2); eCRCL 70 ML/MIN; eGFR 62 ML/MIN
[2023-12-06 04:21] LABS: INR 1.1 INR; PROTHROMBIN TIME 11.5 SECONDS (9.0-12.0)
[2023-12-06 04:37] LABS: APTT 20 SECONDS (22-32)
[2023-12-06 05:04] LABS: HEMOGLOBIN A1C 6.2 % (4.5-6.2)
[2023-12-06 09:02] LABS: HEMATOCRIT 22.1 % (42.0-52.0); HEMOGLOBIN 7.6 g/dl (14.0-17.9); MEAN CORPUSCULAR HEMOGLOBIN 32.2 PG (27.0-31.0); MEAN CORPUSCULAR HGB CONC 34.5 g/dL (33.0-36.5); MEAN CORPUSCULAR VOLUME 93.3 FL (78-98); MEAN PLATELET VOLUME 9.1 FL (7.4-10.4); PLATELET COUNT 134 X10'3 (140-440); RED BLOOD COUNT 2.37 X10'6 (4.70-6.10); RED CELL DISTRIBUTION WIDTH 14.3 % (11.5-14.5); WHITE BLOOD COUNT 9.3 X10'3 (4.5-11.0)
[2023-12-06] MEDS: CefTRIAXone 2gm/D5W 50ml BAG 50 ML IV ONE (10:58)
[2023-12-06] MEDS ORDERED: LIDOcaine 2% Viscous 15ml cup ONE (13:46)
[2023-12-06] MEDS ORDERED: fentaNYL/PF 50MCG/1 ML 2ML syringe ONE (13:46)
[2023-12-06] MEDS ORDERED: MIDAZolam 1 MG/ML 5ML VIAL ONE (13:46)
[2023-12-06] MEDS ORDERED: simethicone 40mg/0.6ml oral drops 30ml ONE (15:35)
[2023-12-06 21:25] LABS: BASOPHILS % (AUTO) 0.2 % (0-1); EOSINOPHILS % (AUTO) 0.3 % (0-6); LYMPHOCYTES # (AUTO) 1.8 X10'3 (1.1-4.8); LYMPHOCYTES % (AUTO) 17.7 % (21-51); MEAN CORPUSCULAR HEMOGLOBIN 32.6 PG (27.0-31.0); MEAN CORPUSCULAR HGB CONC 34.8 g/dL (33.0-36.5); MEAN CORPUSCULAR VOLUME 93.8 FL (78-98); MEAN PLATELET VOLUME 8.9 FL (7.4-10.4); MONOCYTES # (AUTO) 1.1 X10'3 (0-0.9); MONOCYTES % (AUTO) 10.8 % (2-12); NEUTROPHILS # (AUTO) 7.1 X10'3 (1.8-7.7); PLATELET COUNT 130 X10'3 (140-440); RED BLOOD COUNT 2.08 X10'6 (4.70-6.10); RED CELL DISTRIBUTION WIDTH 14.1 % (11.5-14.5)
[2023-12-06 21:31] LABS: HEMOGLOBIN 6.8 g/dl (14.0-17.9)
[2023-12-06 21:32] LABS: HEMATOCRIT 19.5 % (42.0-52.0)
[2023-12-07] VITALS (8 sets, daily range): BP systolic 93–134; BP diastolic 54–65; PULSE 60–74; RESP 12–22; TEMP 97.7–99; O2SAT 95–98
[2023-12-07] MEDS: Melatonin 3mg tablet PO ONE ×2 (02:08→23:30)
[2023-12-07 07:11] LABS: BASOPHILS # (AUTO) 0.1 X10'3 (0-0.2); BASOPHILS % (AUTO) 0.7 % (0-1); EOSINOPHILS # (AUTO) 0.1 X10'3 (0-0.9); EOSINOPHILS % (AUTO) 0.9 % (0-6); HEMATOCRIT 23.5 % (42.0-52.0); HEMOGLOBIN 8.2 g/dl (14.0-17.9); LYMPHOCYTES # (AUTO) 1.6 X10'3 (1.1-4.8); LYMPHOCYTES % (AUTO) 22.1 % (21-51); MEAN CORPUSCULAR HEMOGLOBIN 32.7 PG (27.0-31.0); MEAN CORPUSCULAR HGB CONC 34.8 g/dL (33.0-36.5); MEAN CORPUSCULAR VOLUME 93.9 FL (78-98); MONOCYTES # (AUTO) 0.7 X10'3 (0-0.9); MONOCYTES % (AUTO) 10.3 % (2-12); NEUTROPHILS # (AUTO) 4.8 X10'3 (1.8-7.7); PLATELET COUNT 123 X10'3 (140-440); RED CELL DISTRIBUTION WIDTH 13.8 % (11.5-14.5); WHITE BLOOD COUNT 7.2 X10'3 (4.5-11.0)
[2023-12-07 07:23] LABS: PROTHROMBIN TIME 10.3 SECONDS (9.0-12.0)
[2023-12-07 07:31] LABS: ALANINE AMINOTRANSFERASE 43 U/L (12-78); ALBUMIN 3.1 G/DL (3.4-5.0); ALBUMIN/GLOBULIN RATIO 1.2 (1.1-1.5); ALKALINE PHOSPHATASE 31 IU/L (46-116); ANION GAP 6 (8-16); ASPARTATE AMINO TRANSFERASE 43 U/L (10-37); BILIRUBIN,TOTAL 0.4 MG/DL (0.1-1.0); BLOOD UREA NITROGEN 21 MG/DL (7-18); CALCIUM 7.8 MG/DL (8.5-10.1); CHLORIDE 104 MMOL/L (99-107); CREATININE 0.84 MG/DL (0.60-1.10); GLUCOSE 159 MG/DL (70-104); LIPASE 114 U/L (16-77); MAGNESIUM 1.8 MG/DL (1.5-2.4); PHOSPHORUS 1.8 MG/DL (2.3-4.5); POTASSIUM 3.9 MMOL/L (3.5-5.1); SODIUM 137 MMOL/L (135-145); TOTAL CARBON DIOXIDE 27.4 MMOL/L (24-32); TOTAL PROTEIN 5.6 G/DL (6.4-8.2); eCRCL 103 ML/MIN; eGFR > 90 ML/MIN
[2023-12-07 07:33] LABS: APTT 20 SECONDS (22-32)
[2023-12-07 15:07] LABS: BASOPHILS % (AUTO) 0.5 % (0-1); EOSINOPHILS # (AUTO) 0.1 X10'3 (0-0.9); EOSINOPHILS % (AUTO) 0.8 % (0-6); HEMOGLOBIN 7.6 g/dl (14.0-17.9); LYMPHOCYTES # (AUTO) 1.7 X10'3 (1.1-4.8); LYMPHOCYTES % (AUTO) 23.2 % (21-51); MEAN CORPUSCULAR HGB CONC 35.3 g/dL (33.0-36.5); MEAN CORPUSCULAR VOLUME 93.7 FL (78-98); MEAN PLATELET VOLUME 8.7 FL (7.4-10.4); MONOCYTES # (AUTO) 0.8 X10'3 (0-0.9); MONOCYTES % (AUTO) 10.7 % (2-12); NEUTROPHILS # (AUTO) 4.8 X10'3 (1.8-7.7); NEUTROPHILS % (AUTO) 64.8 % (42-75); PLATELET COUNT 122 X10'3 (140-440); RED BLOOD COUNT 2.29 X10'6 (4.70-6.10); RED CELL DISTRIBUTION WIDTH 13.9 % (11.5-14.5); WHITE BLOOD COUNT 7.3 X10'3 (4.5-11.0)
[2023-12-07 15:11] LABS: HEMATOCRIT 21.4 % (42.0-52.0)
[2023-12-08 02:00] VITALS: BP 101/62; PULSE 63; RESP 14; RESP 18; TEMP 98.3; O2SAT 96; O2SAT 97
[2023-12-08 07:48] LABS: ALANINE AMINOTRANSFERASE 65 U/L (12-78); ALBUMIN/GLOBULIN RATIO 1.2 (1.1-1.5); ALKALINE PHOSPHATASE 31 IU/L (46-116); ANION GAP 5 (8-16); ASPARTATE AMINO TRANSFERASE 94 U/L (10-37); BILIRUBIN,TOTAL 0.3 MG/DL (0.1-1.0); BLOOD UREA NITROGEN 7 MG/DL (7-18); BUN/CREATININE RATIO 9.5 (10.0-20.0); CALCIUM 8.1 MG/DL (8.5-10.1); CHLORIDE 104 MMOL/L (99-107); CREATININE 0.74 MG/DL (0.60-1.10); GLUCOSE 173 MG/DL (70-104); POTASSIUM 3.7 MMOL/L (3.5-5.1); SODIUM 135 MMOL/L (135-145); TOTAL CARBON DIOXIDE 26.3 MMOL/L (24-32); TOTAL PROTEIN 5.5 G/DL (6.4-8.2); eCRCL 117 ML/MIN; eGFR > 90 ML/MIN
[2023-12-08 08:00] VITALS: RESP 16; O2SAT 96
[2023-12-08 08:07] LABS: BASOPHILS % (AUTO) 0.5 % (0-1); EOSINOPHILS # (AUTO) 0.1 X10'3 (0-0.9); EOSINOPHILS % (AUTO) 1.2 % (0-6); HEMOGLOBIN 7.6 g/dl (14.0-17.9); LYMPHOCYTES # (AUTO) 1.6 X10'3 (1.1-4.8); LYMPHOCYTES % (AUTO) 27.6 % (21-51); MEAN CORPUSCULAR HEMOGLOBIN 32.9 PG (27.0-31.0); MEAN CORPUSCULAR HGB CONC 34.8 g/dL (33.0-36.5); MEAN CORPUSCULAR VOLUME 94.4 FL (78-98); MONOCYTES # (AUTO) 0.6 X10'3 (0-0.9); MONOCYTES % (AUTO) 9.8 % (2-12); NEUTROPHILS # (AUTO) 3.4 X10'3 (1.8-7.7); NEUTROPHILS % (AUTO) 60.9 % (42-75); PLATELET COUNT 130 X10'3 (140-440); RED BLOOD COUNT 2.32 X10'6 (4.70-6.10); RED CELL DISTRIBUTION WIDTH 13.4 % (11.5-14.5); WHITE BLOOD COUNT 5.6 X10'3 (4.5-11.0)
[2023-12-08 08:19] LABS: HEMATOCRIT 21.9 % (42.0-52.0)
[2023-12-08 08:59] LABS: NUCLEATED RED BLOOD CELLS 1 /100WBC (0-0); PLATELET ESTIMATE DECREASED; TOTAL CELLS COUNTED 100
[2023-12-08 09:00] LABS: ANISOCYTOSIS FEW; POLYCHROMASIA FEW
[2023-12-08] MEDS ORDERED: PANT40TA54 PO (10:22)
[2023-12-08 11:00] VITALS: BP 103/54; PULSE 78; RESP 17; TEMP 98.9; O2SAT 97
== END 2023-12-08 13:50 | disposition home or self-care (01) | DRG 380 ==
LOC: ER 14:02 → ED HOLD 15:39 → UNDOADMIN 15:39 → ED HOLD 16:25 → EDBEDREQ 12-06 05:43 → ED HOLD 12-06 07:20 → PCU 3S 12-06 07:20
PROVIDERS: ADMIT Internal Medicine; ATTEND Internal Medicine
PROC: 30233N1 Transfusion of Nonautologous Red Blood Cells into Peripheral Vein, Percutaneous Approach (ICD-10-PCS; principal; 2023-12-06)
PROC: 0DB48ZX Excision of Esophagogastric Junction, Via Natural or Artificial Opening Endoscopic, Diagnostic (ICD-10-PCS; 2023-12-06)
DX: K22.11 Ulcer of esophagus with bleeding (principal); N17.0 Acute kidney failure with tubular necrosis; R57.1 Hypovolemic shock; E87.1 Hypo-osmolality and hyponatremia; E87.5 Hyperkalemia; I10 Essential (primary) hypertension; I25.10 Atherosclerotic heart disease of native coronary artery without angina pectoris; I25.2 Old myocardial infarction; I48.91 Unspecified atrial fibrillation; K22.6 Gastro-esophageal laceration-hemorrhage syndrome; R73.03 Prediabetes; F10.10 Alcohol abuse, uncomplicated; D72.829 Elevated white blood cell count, unspecified; D64.9 Anemia, unspecified; Z79.82 Long term (current) use of aspirin; Z80.0 Family history of malignant neoplasm of digestive organs; Z83.3 Family history of diabetes mellitus; Z85.048 Personal history of other malignant neoplasm of rectum, rectosigmoid junction, and anus; Z90.49 Acquired absence of other specified parts of digestive tract; Z92.21 Personal history of antineoplastic chemotherapy; Z95.5 Presence of coronary angioplasty implant and graft
CPT/HCPCS: 36415; 36430; 43239; 71045; 80048; 80053; 80076; 81003; 82272; 83036; 83605; 83690; 83735; 84100; 84145; 85007; 85025; 85027; 85610; 85730; 86885; 86900; 86901; 86920; 87040; 93005; 96374; 96375; 99152; 99291; A4620; G0378; J0696; J2250; J2405; J2470; J3010; J7030; J7040; P9016

== ENCOUNTER 2024-03-13 07:10 | Emergency (ER) | payer BC, SELFPAY ==
[~2024-03-13] VITALS: Ht 172.7 cm; Wt 67.6 kg
[~2024-03-13 07:10] MED LIST changes: +ASPI-611 PO; -CLOP75TA33 PO; -METO25TA6 PO; +PANT40TA54 PO
[2024-03-13] MEDS ORDERED: iohexol 300mg/ml 100ml inj. ONE ×2 (08:07→08:08)
[2024-03-13] MEDS: ringers solution, lacted 1,000 ML IV ONE ×2 (08:11→11:08)
[2024-03-13] MEDS: ondansetron/PF 4mg/2ml inj IV ONE (08:11)
[2024-03-13] MEDS: pantoprazole 40 MG vial IV ONE (08:11)
[2024-03-13 08:25] LABS: BASOPHILS # (AUTO) 0.1 X10'3 (0-0.2); BASOPHILS % (AUTO) 0.7 % (0-1); EOSINOPHILS % (AUTO) 0.3 % (0-6); HEMATOCRIT 44.3 % (42.0-52.0); HEMOGLOBIN 15.1 g/dl (14.0-17.9); LYMPHOCYTES # (AUTO) 1.6 X10'3 (1.1-4.8); LYMPHOCYTES % (AUTO) 18.7 % (21-51); MEAN CORPUSCULAR HGB CONC 34.1 g/dL (33.0-36.5); MEAN CORPUSCULAR VOLUME 87.9 FL (78-98); MEAN PLATELET VOLUME 8.5 FL (7.4-10.4); MONOCYTES # (AUTO) 0.7 X10'3 (0-0.9); MONOCYTES % (AUTO) 8.1 % (2-12); NEUTROPHILS # (AUTO) 6.1 X10'3 (1.8-7.7); NEUTROPHILS % (AUTO) 72.2 % (42-75); PLATELET COUNT 263 X10'3 (140-440); RED BLOOD COUNT 5.04 X10'6 (4.70-6.10); RED CELL DISTRIBUTION WIDTH 17.5 % (11.5-14.5); WHITE BLOOD COUNT 8.4 X10'3 (4.5-11.0)
[2024-03-13 08:26] LABS: ALANINE AMINOTRANSFERASE 49 U/L (12-78); ALBUMIN 4.6 G/DL (3.4-5.0); ALBUMIN/GLOBULIN RATIO 1.2 (1.1-1.5); ALKALINE PHOSPHATASE 72 IU/L (46-116); ANION GAP 18 (8-16); ASPARTATE AMINO TRANSFERASE 36 U/L (10-37); BILIRUBIN,TOTAL 1.4 MG/DL (0.1-1.0); BLOOD UREA NITROGEN 14 MG/DL (7-18); BUN/CREATININE RATIO 16.7 (10.0-20.0); CHLORIDE 96 MMOL/L (99-107); CREATININE 0.84 MG/DL (0.60-1.10); ETHANOL < 10 MG/DL (<10); GLUCOSE 223 MG/DL (70-104); LIPASE 40 U/L (16-77); POTASSIUM 3.5 MMOL/L (3.5-5.1); SODIUM 134 MMOL/L (135-145); TOTAL CARBON DIOXIDE 20.1 MMOL/L (24-32); TOTAL PROTEIN 8.3 G/DL (6.4-8.2); eCRCL 102 ML/MIN; eGFR > 90 ML/MIN
[2024-03-13] MEDS: OLANZapine **IM** 10 mg inj. IM ONE (11:08)
[2024-03-13] MEDS: ketorolac trometh 15mg/ml vial 15 MG/ML ML IV ONE (11:08)
[2024-03-13] MEDS ORDERED: PROC-8 PO (12:23)
[2024-03-13 12:32] VITALS: BP 139/71; PULSE 84; TEMP 97.6; O2SAT 98
[2024-03-13 12:37] VITALS: RESP 16
== END 2024-03-13 12:48 | disposition home or self-care (01) ==
LOC: ER 07:11
DX: K29.70 Gastritis, unspecified, without bleeding (principal); I25.10 Atherosclerotic heart disease of native coronary artery without angina pectoris; I10 Essential (primary) hypertension; I25.2 Old myocardial infarction; F10.90 Alcohol use, unspecified, uncomplicated; Z95.5 Presence of coronary angioplasty implant and graft; Z79.82 Long term (current) use of aspirin; Z79.899 Other long term (current) drug therapy; Z85.048 Personal history of other malignant neoplasm of rectum, rectosigmoid junction, and anus; Y90.9 Presence of alcohol in blood, level not specified
CPT/HCPCS: 36415; 74177; 80053; 80320; 83690; 85025; 87502; 87503; 96361; 96365; 96372; 96375; 99285; J1885; J2405; J2470; J3490; J7030; J7120; Q9967

== ENCOUNTER 2024-08-01 14:45 | Emergency (ER) | payer BC ==
[~2024-08-01] VITALS: Ht 172.7 cm; Wt 61.0 kg
[~2024-08-01 14:45] MED LIST changes: -FLO0.4C PO; +PROC-8 PO; +TAMS-55 PO
--- NOTE | 2024-08-01 15:11 | Physician Documentation ---
History of Present Illness Chief Complaint: Abdominal Pain w/vomiting Stated Complaint: MULTIPLE MED COMPLAINTS Primary Medical Doctor: belinda BAPTISTE This 49-year-old male with history of diabetes and abdominal surgery for colon cancer presents with six days of upper abdominal pain and persistent vomiting, patient reports that he is unable to keep any food drink or medications down. Patient reports that he initially had diarrhea though he is now no longer having bowel movements. Patient reports subjective fevers and chills. Denies hemat emesis, hematochezia/melena. Medication Reconciliation Allergies: Coded Allergies: No Known Allergies (Unverified , 08/01/24) Scheduled Aspirin (Aspir 81), 1 TAB PO DAILY, (Reported) Atorvastatin Calcium (Atorvastatin Calcium), 1 TAB PO DAILY, (Reported) Lisinopril (Lisinopril), 1 TAB PO DAILY, (Reported) Magnesium Oxide (Magox 400), 1 TAB PO DAILY, (Reported) Pantoprazole Sodium (Pantoprazole Sodium), 40 MG PO BID Prochlorperazine Maleate (Compazine), 1 TAB PO Q6H Tamsulosin Hcl* (Flomax*), 1 CAP PO DAILY, (Reported) Scheduled PRN Hydrocodone Bit/Acetaminophen (Hydrocodon-Acetaminophen 5-325), 1 TAB PO Q6H PRN for severe pain, (Reported) Past Medical History Past Medical History: Coronary Artery Disease, Hypertension, Myocardial Infarction, *CANCER* Past Surgical History: heart valve surgery Patient History: Cancer of gallbladder FH: atrial fibrillation FATHER sister FH: colon cancer Maternal grandmother FH: diabetes mellitus Paternal grandmother FH: prostate cancer Alcohol Use: Alcoholic Drug Use: none Lives In: Home Occupation: employed Review of Systems All Other Systems at this time: Reviewed and Negative Physical Exam Vital Signs: Temperature: 99.1, Heart Rate: 72, Respiratory Rate: 18, BP: 137/75, Pulse Oximetry: 100, Weight: 61.000 Physical Exam HEENT: PERRL, moist oral mucosa, EOMI Pulmonary: No respiratory distress Cardiac: RRR, no murmur, rub or gallop GI: nondistended, soft, +TTP RUQ with +ferrer, no guarding, no rebound MSK: no deformity Skin: w/d/i, no rash Neuro: alert, nonfocal Psych: normal affect Progress Results/Orders Results/Orders Vital Signs 08/01/24 15:02 Temp 99.1 Pulse 72 Resp 18 B/P (MAP) 137/75 Pulse Ox 100 Medical Decision Making Findings 49 year old male with RUQ pain, nausea, and subjective fevers for about one week. Workup demonstrated elevated bilirubin. Will perform ultrasound of RUQ for possible gallbladder pathology. Will sign out to oncoming ER physician for foll ow up and disposition. Assume care of patient. Ultrasound of gallbladder is reassuring. He is responding to therapy. He is now tolerating p.o.. I do not feel CT scan is necessary. Differential Dx:Considerations: Include: Cholangitis, Constipation, Diverticular disease, Esophagitis, Gastroenteritis, Hepatitis, Pancreatitis, Urinary tract infection Departure Disposition: 30 STILL A PATIENT Impression: Primary Impression: Dehydration Additional Impression: Gastritis Condition: Improved Discharge Instructions: Gastritis, Adult Referrals: NO PRIMARY CARE PROVIDER (PCP) Prescriptions Ondansetron 8mg ODT (Ondansetron Odt) 8 Mg Tab.rapdis 1 TAB PO Q6H for nausea/vomiting for 3 Days, #12 TAB 0 Refills Prov: NIMA MELO MD 08/01/24 Famotidine (Pepcid) 20 Mg Tablet 1 TAB PO Q12H, #20 TAB 0 Refills Prov: NIMA MELO MD 08/01/24 Education Educated: Patient Additional Comment Medical Screen Exam History: This 49-year-old male with history of diabetes and abdominal surgery for colon cancer presents with six days of upper abdominal pain and persistent vomiting, patient reports that he is unable to keep any food drink or medications down. Patient reports that he initially had diarrhea though he is now no longer having bowel movements. Patient reports subjective fevers and chills. Exam: VITALS: Reviewed and as above. GENERAL: Alert and oriented, nontoxic appearing, ill-appearing though no acute distress. RESPIRATORY: No increased work of breathing, no respiratory distress, speaking in full clear sentences Abdominal pain protocol initiated by nursing. MSE performed in triage and patient returned to ED lobby by nursing staff available ED room The note accurately reflects work and decisions made by me.CARRI Gurrola 08/01/24 15:11 Signature Scribe Signature: . Attestation: The note accurately reflects work and decisions made by me.Nima Melo MD 08/01/24 21:55 . JANICE DENG Aug 01, 2024 15:11 MIRIAM CANO MD Aug 01, 2024 17:44 NIMA MELO MD Aug 01, 2024 21:55
[2024-08-01 15:45] LABS: ALANINE AMINOTRANSFERASE 44 U/L (12-78); ALBUMIN 4.9 G/DL (3.4-5.0); ALBUMIN/GLOBULIN RATIO 1.5 (1.1-1.5); ALKALINE PHOSPHATASE 82 IU/L (46-116); AMYLASE 60 U/L (25-115); ANION GAP 11 (8-16); ASPARTATE AMINO TRANSFERASE 26 U/L (10-37); BILIRUBIN,TOTAL 2.1 MG/DL (0.1-1.0); BLOOD UREA NITROGEN 33 MG/DL (7-18); BUN/CREATININE RATIO 29.7 (10.0-20.0); CALCIUM 9.9 MG/DL (8.5-10.1); CHLORIDE 87 MMOL/L (99-107); CREATININE 1.11 MG/DL (0.60-1.10); GLUCOSE 155 MG/DL (70-104); LIPASE 67 U/L (16-77); POTASSIUM 3.6 MMOL/L (3.5-5.1); SODIUM 128 MMOL/L (135-145); TOTAL CARBON DIOXIDE 30.2 MMOL/L (24-32); TOTAL PROTEIN 8.1 G/DL (6.4-8.2); eCRCL 69 ML/MIN; eGFR 70 ML/MIN
[2024-08-01 15:48] LABS: BASOPHILS # (AUTO) 0.1 X10'3 (0-0.2); BASOPHILS % (AUTO) 0.6 % (0-1); EOSINOPHILS % (AUTO) 0.4 % (0-6); HEMATOCRIT 44.7 % (42.0-52.0); HEMOGLOBIN 16.4 g/dl (14.0-17.9); LYMPHOCYTES # (AUTO) 2.6 X10'3 (1.1-4.8); LYMPHOCYTES % (AUTO) 24.3 % (21-51); MEAN CORPUSCULAR HEMOGLOBIN 30.9 PG (27.0-31.0); MEAN CORPUSCULAR HGB CONC 36.6 g/dL (33.0-36.5); MEAN CORPUSCULAR VOLUME 84.3 FL (78-98); MEAN PLATELET VOLUME 8.8 FL (7.4-10.4); MONOCYTES # (AUTO) 1.5 X10'3 (0-0.9); MONOCYTES % (AUTO) 13.7 % (2-12); NEUTROPHILS # (AUTO) 6.6 X10'3 (1.8-7.7); PLATELET COUNT 273 X10'3 (140-440); RED CELL DISTRIBUTION WIDTH 13.2 % (11.5-14.5); WHITE BLOOD COUNT 10.8 X10'3 (4.5-11.0)
[2024-08-01 17:12] LABS: BILIRUBIN,URINE NEGATIVE (Neg); CLARITY,URINE CLEAR (Clear); COLOR,URINE YELLOW (Yellow); GLUCOSE, URINE 100 mg/dl (Neg); KETONES,URINE 40 mg/dl (Neg); LEUKOCYTE ESTERASE ,URINE NEGATIVE (Neg); NITRITES, URINE NEGATIVE (Neg); OCCULT BLOOD,URINE NEGATIVE (Neg); PH,URINE 6.5 (4.8-8.0); PROTEIN,URINE NEGATIVE (Neg)
[2024-08-01 17:13] LABS: UA COLLECTION TYPE CLN CATCH MIDSTREAM
--- NOTE | 2024-08-01 18:56 | RADIOLOGY REPORT ---
Procedure: US ULTRASOUND OF [facility] Study Date and Requested Time: 08/01/2024 06:10 PM History: epigastric abdominal pain Comparison: CT abdomen and pelvis 03/13/2023 Technique: Multiple high resolution brandt-scale images obtained of the right upper quadrant of the abd omen with color Doppler for evaluation of blood flow and vascularity as indicated. Findings: Liver normal in size, measuring 16 cm in length, with heterogeneous echotexture and normal contours. No evidence of focal hepatic lesions, intrahepatic or extrahepatic ductal dilatation. Common bile elle t measures 0.3 cm in diameter. Gallbladder polyp is noted. No evidence of abnormal wall thickening, gallstones, biliary sludge, or pericholecystic fluid. Negative sonographic He's sign. Pancreas is partially obscured by bowel gas. Right kidney measures 10.1 cm in length, with normal contours, echotexture, and cortical thickness. N o evidence of hydronephrosis, calculi, cystic or solid renal lesions. Partially visualized inferior vena cava unremarkable. Impression: Hepatic steatosis. 0.5 cm gallbladder polyp is noted.
[2024-08-01] MEDS: normal saline 1000ML IV soln IVB ONE (19:17)
[2024-08-01] MEDS: pantoprazole 40 MG vial IV ONE (19:24)
[2024-08-01] MEDS: famotidine/PF 10 mg/ml inj IV ONE (19:24)
[2024-08-01] MEDS: ondansetron/PF 4mg/2ml inj IV ONE (19:24)
[2024-08-01 20:05] VITALS: RESP 16
[2024-08-01] MEDS ORDERED: ONDA-245 PO (21:54)
[2024-08-01] MEDS ORDERED: FAMO-129 PO (21:54)
[2024-08-01 21:59] VITALS: BP 104/87; PULSE 76; TEMP 98.3; O2SAT 100
== END 2024-08-01 22:13 | disposition still patient (30) ==
LOC: ER 14:46
DX: K29.70 Gastritis, unspecified, without bleeding (principal); E86.0 Dehydration; E11.9 Type 2 diabetes mellitus without complications; I10 Essential (primary) hypertension; I25.10 Atherosclerotic heart disease of native coronary artery without angina pectoris; I25.2 Old myocardial infarction; F10.90 Alcohol use, unspecified, uncomplicated; Z85.038 Personal history of other malignant neoplasm of large intestine; Z79.82 Long term (current) use of aspirin; Z79.899 Other long term (current) drug therapy; Y90.9 Presence of alcohol in blood, level not specified
CPT/HCPCS: 36415; 76700; 80053; 81003; 82150; 83690; 84484; 85025; 96361; 96374; 96375; 99285; J2405; J2470; J3490; J7030

== ENCOUNTER 2025-01-05 08:30 | Outpatient (CLI) | payer MEDICAID ==
[~2025-01-05 08:30] MED LIST changes: +FAMO-129 PO; +ONDA-245 PO
--- NOTE | 2025-01-05 10:52 | RADIOLOGY REPORT ---
CLINICAL INFORMATION: PAIN IN RIGHT HAND. Paresthesia. Muscle weakness. COMPARISON: None TECHNIQUE: Multisequence multiplanar MRI images of the right wrist were obtained without contrast. FINDINGS: TFCC: Thinning of the articular disc of the TFCC without perforation visualized. Mild Edema and indistinctness of the fibers of the TFCC near its ulnar styloid and foveal attachments, possible sequelae of sprain, of uncertain chronicity, possibly chronic. ULNAR VARIANCE: Neutral. DRUJ: Mild dorsal subluxation of the distal ulna up to 3.5 mm at the distal radioulnar joint. Attenuated fibers of the dorsal radioulnar ligament. LIGAMENTS: Scapholunate and lunotriquetral ligaments are intact. No findings to suggest extrinsic ligament injury. FLEXOR TENDONS: Unremarkable signal intensity and course. No significant tendinosis, tenosynovitis, or tear. CARPAL TUNNEL: Unremarkable. Normal appearance of the median nerve and flexor retinaculum. EXTENSOR TENDONS: Unremarkable signal intensity and course. No significant tendinosis, tenosynovitis, or tear. BONES/JOINTS: No fracture or focal marrow contusion OTHER: Small T2 hyperintense structure along the volar aspect of the 2nd metatarsal base measuring up to 5 mm, appears to be a focally prominent vein. IMPRESSION: 1. Mild dorsal subluxation of the distal ulna up to 3.5 mm at the distal radioulnar joint with attenuated fibers of the dorsal radioulnar ligament, most likely chronic, with no adjacent soft tissue edema. Correlate with clinical findings. 2. Thinning of the articular disc of the TFCC without perforation visualized. Mild indistinctness of the fibers of the TFCC near its ulnar styloid and foveal attachments, likely sequelae of sprain, possibly chronic. 3. Additional nonacute findings as described above.
--- NOTE | 2025-01-05 11:11 | RADIOLOGY REPORT ---
EXAM: MR MRI UPPER EXTREMITY RIGHT HISTORY: PARESTHESIA OF SKIN TECHNIQUE: Multiplanar, multisequence MRI of the right elbow was performed without contrast. COMPARISON: None. FINDINGS: Joint: There is small elbow joint effusion. There is no synovitis or loose body. Bones and articular cartilage: Bone marrow signal is homogenous and unremarkable. No high-grade articular cartilage loss. The alignment is within normal limits. Ligaments and tendons: The ulnar collateral ligament is intact. The radial collateral ligament, lateral ulnar collateral ligament (LUCL) and annular ligament are intact. The common flexor tendon is intact. There is thickening of the common extensor tendon at its origin with fluid signal involving the deep fibers consistent with a partial-thickness tear. The biceps, brachialis, triceps tendons are intact. Nerves: The ulnar nerve is normal in signal intensity and caliber and normally located in the cubital tunnel. The medial and radial nerves are intact. Muscles: Regional musculature is preserved in bulk and signal characteristics. IMPRESSION: 1. Partial-thickness tear of the common extensor tendon at its origin in the right elbow. 2. Small elbow joint effusion.
--- NOTE | 2025-01-05 11:54 | RADIOLOGY REPORT ---
CLINICAL INDICATION: RIGHT SHOULDER PAIN TECHNIQUE: DI HUMERUS (2VWS), DI SHOULDER, COMPLETE (MIN 2 VWS) Comparison: None FINDINGS/IMPRESSION: : There is no evidence of acute fracture or dislocation. Soft tissues are unremarkable. Chronic appearing degenerative or chronic posttraumatic subcentimeter ossicle at the inferior aspect of the glenoid.
--- NOTE | 2025-01-05 12:07 | RADIOLOGY REPORT ---
CLINICAL INDICATION: RIGHT HAND PAIN COMPARISON: MR MRI UPPER EXTREMITY RIGHT on DOS: 01/05/25, MR MRI UPPER EXTREMITY RIGHT on DOS: 01/05/25 TECHNIQUE: Multiplanar, multi-sequence MRI of the right hand was performed without intravenous contrast. Contrast: None INTERPRETATION: Bones: There is no fracture. There is no marrow replacing lesion. Soft tissues: The radial and ulnar collateral ligaments are intact. The flexor and extensor tendons are intact. There is no soft tissue mass or fluid collection. There is mild edema in skin superficial to the thenar eminence. IMPRESSION: 1. Mild edema in the thenar eminence. Etiology is uncertain. Differential diagnostic considerations include but are not limited to: Infectious or inflammatory etiology, posttraumatic etiology. 2. No acute bony abnormality.
== END 2025-01-05 23:59 | disposition home or self-care (01) ==
LOC: MRI02 08:30
PROVIDERS: ATTEND Nurse Practitioner Family
DX: S66.318A Strain of extensor muscle, fascia and tendon of other finger at wrist and hand level, initial encounter (principal); S63.071A Subluxation of distal end of right ulna, initial encounter; M25.511 Pain in right shoulder; M79.641 Pain in right hand; M62.81 Muscle weakness (generalized); R20.2 Paresthesia of skin; G89.29 Other chronic pain; M25.421 Effusion, right elbow; X58.XXXA Exposure to other specified factors, initial encounter; Y93.89 Activity, other specified; Y92.89 Other specified places as the place of occurrence of the external cause; Y99.8 Other external cause status
CPT/HCPCS: 73030; 73060; 73218; 73221